=== PATIENT | male | born 1940 | race Caucasian/White ===

== ENCOUNTER 2022-12-28 10:34 | Outpatient (OUT) | payer MEDICARE, OTHER, SELFPAY ==
[2022-12-28 14:59] LABS: Estimated Average Glucose 126 mg/dL
== END 2022-12-28 10:35 | disposition home or self-care (01) ==
LOC: LAB 10:34
PROVIDERS: PCP Internal Medicine; Visit Provider Internal Medicine
DX: E11.9 Type 2 diabetes mellitus without complications (principal)
CPT/HCPCS: 36415; 83036

== ENCOUNTER 2023-01-25 14:44 | Outpatient (OUT) | payer MEDICARE, OTHER, SELFPAY ==
[2023-01-25 15:08] LABS: Basophils Percent Auto 0.3 % (0.2-2.0); Eosinophils Percent Auto 0.2 % (0.9-7.0); Hematocrit 42.7 % (42.0-54.0); Hemoglobin 13.8 g/dL (14.0-18.0); Immature Granulocytes Abs Auto 0.03 10^3/uL (0.00-0.03); Immature Granulocytes Pct Auto 0.3 % (0.0-0.5); Lymphocytes Absolute Auto 1.6 10^3/uL (1.2-3.8); Lymphocytes Percent Auto 17.9 % (20.5-60.0); Mean Corpuscular HGB Conc 32.3 g/dL (29.9-35.2); Mean Corpuscular Hemoglobin 29.9 pg (25.9-34.0); Mean Corpuscular Volume 92.4 fL (80.0-94.0); Mean Platelet Volume 10.7 fL (9.5-13.5); Monocytes Absolute Auto 0.7 10^3/uL (0.3-0.8); Monocytes Percent Auto 7.2 % (1.7-12.0); Neutrophils Absolute Auto 6.8 10^3/uL (1.4-6.5); Neutrophils Percent Auto 74.1 % (43.0-75.0); Platelet Count 226 10^3/uL (150-450); Red Blood Count 4.62 10^6/uL (4.70-6.10); Red Cell Distribution Width 13.7 % (11.0-15.0); White Blood Count 9.2 10^3/uL (4.0-11.0)
[2023-01-25 15:52] LABS: Anion Gap 11.8; BUN Creatinine Ratio 21.2; Calcium 9.1 mg/dL (8.5-10.1); Carbon Dioxide 28.3 mmol/L (21.0-32.0); Chloride 106 mmol/L (98-107); Estimated GFR (African America >60 (>=60); Estimated GFR (Non-African Ame >60 (>=60); Glucose 93 mg/dL (74-106); Potassium 4.1 mmol/L (3.5-5.1); Sodium 142 mmol/L (136-145)
== END 2023-01-25 14:45 | disposition home or self-care (01) ==
LOC: LAB 14:45
PROVIDERS: PCP Internal Medicine; Visit Provider Internal Medicine
DX: K62.5 Hemorrhage of anus and rectum (principal); A08.4 Viral intestinal infection, unspecified
CPT/HCPCS: 36415; 80048; 85025

== ENCOUNTER 2023-11-18 08:46 | Outpatient (OUT) | payer MEDICARE, OTHER, SELFPAY ==
[2023-11-18 08:57] LABS: Basophils Percent Auto 0.4 % (0.2-2.0); Eosinophils Absolute Auto 0.1 10^3/uL (0.0-0.7); Hematocrit 42.9 % (42.0-54.0); Hemoglobin 13.6 g/dL (14.0-18.0); Lymphocytes Absolute Auto 1.6 10^3/uL (1.2-3.8); Lymphocytes Percent Auto 32.5 % (20.5-60.0); Mean Corpuscular HGB Conc 31.7 g/dL (29.9-35.2); Mean Corpuscular Hemoglobin 29.4 pg (25.9-34.0); Mean Corpuscular Volume 92.9 fL (80.0-94.0); Mean Platelet Volume 10.3 fL (9.5-13.5); Monocytes Absolute Auto 0.5 10^3/uL (0.3-0.8); Monocytes Percent Auto 9.2 % (1.7-12.0); Neutrophils Absolute Auto 2.8 10^3/uL (1.4-6.5); Neutrophils Percent Auto 55.9 % (43.0-75.0); Platelet Count 212 10^3/uL (150-450); Red Blood Count 4.62 10^6/uL (4.70-6.10); Red Cell Distribution Width 13.2 % (11.0-15.0)
[2023-11-18 09:16] LABS: Estimated Average Glucose 137 mg/dL; Glycohemoglobin A1C 6.4 % (4.5-6.2)
[2023-11-18 09:18] LABS: Alanine Aminotransferase 23 U/L (16-63); Albumin Globulin Ratio 0.9; Albumin Level 3.6 g/dL (3.4-5.0); Alkaline Phosphatase 68 U/L (46-116); Anion Gap 10.7; Aspartate Amino Transferase 12 U/L (15-37); BUN Creatinine Ratio 17.7; Bilirubin Total 1.7 mg/dL (0.2-1.0); Calcium 8.9 mg/dL (8.5-10.1); Carbon Dioxide 30.3 mmol/L (21.0-32.0); Chloride 107 mmol/L (98-107); Chol HDL Ratio 2.7; Cholesterol 162 mg/dL (<=200); Estimated GFR (African America >60 (>=60); Estimated GFR (Non-African Ame >60 (>=60); Globulin 3.8 g/dL; Glucose 129 mg/dL (74-106); HDL Cholesterol 60 mg/dL (40-60); LDL Cholesterol Calculated 87.6 mg/dL; Sodium 144 mmol/L (136-145); Total Protein 7.4 g/dL (6.4-8.2); Triglycerides 72 mg/dL (<=150); VLDL CHOLESTEROL 14.4 mg/dL
[2023-11-18 12:31] LABS: Microalbumin Urine Random <1.3 mg/dL (<=30.0)
== END 2023-11-18 08:47 | disposition home or self-care (01) ==
LOC: LAB 08:46
PROVIDERS: PCP Internal Medicine; Visit Provider Internal Medicine
DX: E11.65 Type 2 diabetes mellitus with hyperglycemia (principal); E78.00 Pure hypercholesterolemia, unspecified; I10 Essential (primary) hypertension; K21.00 Gastro-esophageal reflux disease with esophagitis, without bleeding
CPT/HCPCS: 36415; 80053; 80061; 82043; 83036; 85025

== ENCOUNTER 2024-05-28 10:54 | Outpatient (OUT) | payer MEDICARE, OTHER, SELFPAY ==
--- OUTSIDE RECORDS SUMMARY | 2024-05-28 11:05 | XMS_ITS | CCD ---
Author Organization [facility] Care Team Providers Care Licensed Surveyor Name Role Phone ROBBIE NIELSEN Primary Care Physician [phone] GIA, DR IBARRA Admitting Unavailable GIA, DR IBARRA Attending Unavailable GIA, DR IBARRA Primary Care Unavailable GIA, DR IBARRA Consulting Unavailable Robbie Nielsen Unavailable SYEDA FITZGERALD Attending Unavailable PETITTI, SYEDA Sterling Attending Unavailable WILBUR CHENEY Attending Unavailable PETITTI, SYEDA Sterling Attending Unavailable PETITTI, SYEDA Sterling Attending Unavailable PETITTI, SYEDA Sterling Attending Unavailable ERIC GALAN Attending Unavailable PETITTI, SYEDA Sterling Attending Unavailable PETITTI, SYEDA Sterling Attending Unavailable PETITTI, SYEDA Sterling Attending Unavailable Medications Current Medications Medication Drug Class(es) Dates Sig (Normalized) Sig (Original) acetaminophen 325 mg / oxyCODONE hydrochloride 5 mg oral tablet (8 sources) Opioid Agonist Start: 11-17-2023 take 1 tablet by mouth every eight hours Oxycodone-Acetami nophen Active 1 TAB PO Every 8 hours November 17, 2023 12:00am Start: 12-19-2022 take 1 tablet by sera th every eight hours as needed for pain oxyCODONE-Acetaminophen 5-325 MG 1 table t as needed Orally every 8 hours as needed for pain for 7 days Dec, Active Start: 12-19-2022 amLODIPine 5 mg / benazepril hydrochloride 20 mg oral capsule (8 sources) Dihydropyridine Calcium Channel Emmanuel, Angiotensin Converting Enzyme Inhibitor Start: 11-17-2023 take 1 capsule by mouth once daily Amlodipine-Benazepril Active 1 CAP PO Daily November 17, 2023 12:00am take 5-20 mg by mouth once daily amLODIPine Besy-Benazepril HCl 5-20 MG TAKE 1 CAPSULE BY MOUTH EVERY DAY Orally qd for 90 days Active amLODIPine Besy- Benazepril HCl 5-20 MG as directed Orally Active betamethasone 0.5 mg/ml / clotrimazole 10 mg/ml topical cream (8 sources) Azole Antifungal, Corticosteroid Start: 11-17-2023 Clotrimazole-Betamethasone Active 1 APPLIC TOPICAL Twice daily November 17, 2023 12:00am Clotrimazole-Bet amethasone 1-0.05 % 1 application Externally Twice a day Active omeprazole 20 mg delayed release oral capsule (8 sources) Proton Pump Inhibitor Start: 11-17-2023 take 20 mg by mouth once daily Omeprazole Active 20 MG PO Daily November 17, 2023 12:00am Omeprazole 20 MG TAKE 1 CAPSULE BY MOUTH DAILY ON EMPTY STOMACH FOLLOWED IN 30 MINUTES BY BREAKFAST Orally Once a day for 90 days Active pravastatin sodium 40 mg oral tablet (9 sources) HMG-CoA Reductase Inhibitor Start: 11-03-2023 take 1 tablet by mouth once daily in the evening Pravastatin Active 0 .ROUTE .COMPLEX November 03, 2023 1:04pm TAKE 1 TABLET BY MOUTH EVERY DAY IN THE EVENING Start: 11-03-2023 End: 11-03-2023 take 40 mg by mouth once daily Pravastatin Discontinue d 40 MG PO Daily November 03, 2023 12:00am November 03, 2023 1:05pm take 1 tablet by sera once daily in the evening Pravastatin Sodium 40 MG TAKE 1 TABLET BY MOUTH EVERY DAY IN THE EVENING for 90 Active sildenafil 100 mg oral tablet (8 sources) Phosphodiesterase 5 Inhibitor Start: 11-17-2023 take 100 mg by mouth once daily Sildenafil Active 100 MG PO Daily November 17, 2023 12:00am take 1 tablet by sera th every twenty-four hours Sildenafil Citrate 100 MG 1 tablet as needed Orally Once a day Active temazepam 15 mg oral capsule (9 sources) Benzodiazepine Start: 11-07-2023 End: 11-07-2023 take 15 mg by mouth once daily at bedtime Temazepam Active 15 MG PO Daily at bedtime November 07, 2023 2:24pm Start: 05-09-2023 Temazepam 15 M G TAKE 1 CAPSULE BY MOUTH EVERY DAY AT BEDTIME NEEDED FOR INSOMNIA Orally Once a day for 30 days Apr, Active Start: 10-26-2022 take 1 capsule by mo [facility] once daily at bedtime as needed Temazepam 15 MG TAKE 1 CAPSULE BY MOUTH EVERY DAY AT BEDTIME NEEDED FOR INSOMNIA for 30 October, Active Problems Active Problems Problem Classification Problem Date Documented Date Episodic/Chronic Diabetes mellitus with complications (2 sources) Hyperglycemia due to type 2 diabetes mellitus; Translations: [Type 2 diabetes mellitus with hyperglycemia] 11-16-2023 Chronic Diabetes mellitus without complication (8 sources) Type 2 diabetes mellitus without complication; Translations: [Type 2 diabetes mellitus without complications] Chronic Diabetes mellitus without complication (11 sources) Impaired fasting glucose; Translations: [Impaired fasting glycemia] Onset: 06-07-2022 Episodic Disorders of lipid metabolism (10 sources) Familial hypercholesterolemia ; Translations: [Pure hypercholesterolemia ] Onset: 06-10-2022 11-16-2023 Chronic Esophageal disorders (4 sources) Gastro-esophageal reflux disease with esophagitis; Translations: [Gastroesophageal reflux disease with esophagitis without hemorrhage] 11-16-2023 Chronic Essential hypertension (11 sources) Essential (primary) hypertension; Translations: [Essential hypertension] Onset: 06-10-2022 Chronic Hyperplasia of prostate (7 sources) Lower urinary tract symptoms due to benign prostatic hypertrophy; Translations: [Benign prostatic hyperplasia with lower urinary tract symptoms] Chronic Miscellaneous mental health disorders (9 sources) Primary insomnia; Translations: [Primary insomnia] 11-07-2023 Chronic Other aftercare (1 source) Other long term acute care registered nurse (current) drug therapy; Translations: [OTH DETENTION CURRENT DRUG THERAPY] Onset: 06-10-2022 Episodic Other male genital disorders (7 sources) Impotence of organic origin; 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] Chronic Other nutritional; endocrine; and metabolic disorders (7 sources) Overweight; Translations: [Overweight] Episodic Other upper respiratory disease (7 sources) Vasomotor rhinitis; Translations: [Vasomotor rhinitis] Chronic Other upper respiratory disease (1 source) Vasomotor rhinitis Chronic Poisoning by nonmedicinal substances (7 sources) Toxic effect of venom of bees, accidental (unintentional), initial encounter; Translations: [Bee sting reaction] Episodic Skin and subcutaneous tissue infections (7 sources) Cutaneous abscess of left lower limb; Translations: [Abscess of left leg] Episodic Spondylosis; intervertebral disc disorders; other back problems (8 sources) Lumbar spondylosis; Translations: [Spondylosis without myelopathy or radiculopathy, lumbar region] Chronic Spondylosis; intervertebral disc disorders; other back problems (8 sources) Acute back pain with sciatica; Translations: [Lumbago with sciatica, right side] Episodic Past or Other Problems Problem Classification Problem Date Documented Da te Episodic/Chronic Esophageal disorders (5 sources) Esophageal disorders; Translations: [Gastroesophageal reflux disease with esophagitis without hemorrhage] Results Test Name Value Interpretation Reference Range Facility CBC AUTO DIFFon 06-07-2022 BASO # 0.0 103/ul Normal 0.0-0.1 [facility] Comment on above: Performed By: #### C BC #### [facility] [address] [address] [address] Wu Tony Basophils/100 WBC (Bld) 0.6 % Normal 0.2-2.0 [facility] Comment on above: Performed By: #### C BC #### [facility] [address] [address] [address] Wu Tony EO # 0.0 103/ul Normal 0.0-0.7 [facility] Comment on above: Performed By: #### C BC #### [facility] [address] [address] [address] Wu Tony Eosinophils/100 WBC (Bld) 0.6 % Critically low 0.9-7.0 [facility] Comment on above: Performed By: #### C BC #### [facility] [address] [address] [address] Wu Tony Erythrocyte distribution width (RBC) [Ratio] 13.3 % Normal 11.0-15.0 [facility] Comment on above: Performed By: #### C BC #### [facility] [address] [address] [address] Wu Tony Hematocrit (Bld) [Volume fraction] 44.6 % Normal 42.0-54.0 [facility] Comment on above: Performed By: #### C BC #### [facility] [address] [address] [address] Wu Tony Hemoglobin (Bld) [Mass/Vol] 14.4 g/dL Normal 14.0-18.0 [facility] Comment on above: Performed By: #### C BC #### [facility] [address] [place] [address] Dr. Wu Tony IG # 0.01 10e3/ul Normal 0.00-0.03 [facility] Comment on above: Performed By: #### C BC #### [facility] [address] [place] [address] Dr. Wu Tony IG % 0.2 % Normal 0.0-0.5 [facility] Comment on above: Performed By: #### C BC #### [facility] [address] [place] [address] Dr. Wu Tony LYMPH # 1.6 103/ul Normal 1.2-3.8 [facility] Comment on above: Performed By: #### C BC #### [facility] [address] [place] [address] Dr. Wu Tony Lymphocytes/100 WBC (Bld) 25.7 % Normal 20.5-60.0 [facility] Comment on above: Performed By: #### C BC #### [facility] [address] [place] [address] Dr. Wu Tony MANUAL DIFF REQ NO Normal [facility] Comment on above: Performed By: #### C BC #### [facility] [address] [place] [address] Dr. Wu Tony MCH (RBC) [Entitic mass] 30.6 pg Normal 25.9-34.0 [facility] Comment on above: Performed By: #### C BC #### [facility] [address] [place] [address] Dr. Wu Tony MCHC (RBC) [Mass/Vol] 32.3 g/dL Normal 29.9-35.2 [facility] Comment on above: Performed By: #### C BC #### [facility] [address] [place] [address] Dr. Wu Tony MCV (RBC) [Entitic vol] 94.9 fL Critically high 80.0-94.0 [facility] Comment on above: Performed By: #### C BC #### [facility] [address] [place] [address] Dr. Wu Tony MONO # 0.5 103/ul Normal 0.3-0.8 [facility] Comment on above: Performed By: #### C BC #### [facility] [address] [place] [address] Dr. Wu Tony Monocytes/100 WBC (Bld) 7.1 % Normal 1.7-12.0 [facility] Comment on above: Performed By: #### C BC #### [facility] [address] [place] [address] Dr. Wu Tony NEUT # 4.2 103/ul Normal 1.4-6.5 [facility] Comment on above: Performed By: #### C BC #### [facility] [address] [place] [address] Dr. Wu Tony Neutrophils/100 WBC (Bld) 65.8 % Normal 43.0-75.0 [facility] Comment on above: Performed By: #### C BC #### [facility] [address] [place] [address] Dr. Wu Tony Platelet mean volume (Bld) [Entitic vol] 10.2 fL Normal 9.5-13.5 [facility] Comment on above: Performed By: #### C BC #### [facility] [address] [place] [address] Dr. Wu Tony PLT 226 103/ul Normal 150-450 [facility] Comment on above: Performed By: #### C BC #### [facility] [address] [place] [address] Dr. Wu Tony RBC 4.70 106/ul Normal 4.70-6.10 [facility] Comment on above: Performed By: #### C BC #### [facility] [address] [place] [address] Dr. Wu Tony WBC 6.4 103/ul Normal 4.0-11.0 [facility] Comment on above: Performed By: #### C BC #### [facility] [address] [place] [address] Dr. Wu Tony GLYCOHEMOGLOBIN A1Con 2021 ADA RECOMMENDATION SEE BELOW Normal [facility] Comment on above: Result Comment: ADA RECOMMENDED LIMIT 4.0 - 6.0 ADA THERAPEUTIC TARGET < 7.0 ACTION SUGGESTED > 7.0 Performed By: #### A 1C #### [facility] [address] [address] [address] Wu Tony Glucose [Mass/Vol] 131 mg/dL Normal [facility] Comment on above: Performed By: #### A 1C #### [facility] [address] [address] [address] Wu Tony HbA1c (Bld) [Mass fraction] 6.2 % Normal 4.5-6.2 [facility] Comment on above: Performed By: #### A 1C #### [facility] [address] [place] [address] Dr. Wu Tony LIPID PROFILEon 06-07-2022 CHOL-HDL RATIO NORM SEE BELOW Normal [facility] Comment on above: Result Comment: 3.3 - 4.4 LOW RISK 4.4 - 7.1 AVERAGE RISK 7.1 - 11.0 MODERATE RISK >11.0 HIGH RISK Performed By: #### L IPID, ALT, BMP #### [facility] [address] [place] [address] Dr. Wu Tony Cholesterol [Mass/Vol] 157 mg/dL Normal <=200 [facility] Comment on above: Performed By: #### L IPID, ALT, BMP #### [facility] [address] [address] [address] Wu Tony Cholesterol in HDL [Mass/Vol] 65 mg/dL Critically high 40-60 [facility] Comment on above: Performed By: #### L IPID, ALT, BMP #### [facility] [address] [place] [address] Dr. Wu Tony Cholesterol in LDL [Mass/Vol] 73.8 mg/dL Normal [facility] Comment on above: Performed By: #### L IPID, ALT, BMP #### [facility] [address] [place] [address] Dr. Wu Tony Cholesterol.total/Cho lesterol in HDL [Mass ratio] 2.4 {ratio} Normal [facility] Comment on above: Performed By: #### L IPID, ALT, BMP #### [facility] [address] [address] [address] Wu Tony HDL NORMAL > or = 60 mg/dl - LOW CARDIOVASCULAR RISK <40 mg/dl - HIGH CARDIOVASCULAR RISK Normal [facility] Comment on above: Performed By: #### L IPID, ALT, BMP #### [facility] [address] [place] [address] Dr. Wu Tony LDL CALC NORMAL SEE BELOW Normal [facility] Comment on above: Result Comment: <100 mg/dl OPTIMAL 100 - 129 mg/dl NEAR OR ABOVE OPTIMAL 130 - 159 mg/dl BORDERLINE HIGH 160 - 189 mg/dl HIGH >190 mg/dl VERY HIGH Performed By: #### L IPID, ALT, BMP #### [facility] [address] [place] [address] Dr. Wu Tony Triglyceride [Mass/Vol] 91 mg/dL Normal <=150 [facility] Comment on above: Performed By: #### L IPID, ALT, BMP #### [facility] [address] [place] [address] Dr. Wu Tony VLDL CALC 18.2 mg/dL Normal [facility] Comment on above: Performed By: #### L IPID, ALT, BMP #### [facility] [address] [place] [address] Dr. Wu Tony PROF CHEM 8 (BAS METB)on Anion gap [Moles/Vol] 7.6 mmol/L Normal [facility] Comment on above: Performed By: #### L IPID, ALT, BMP #### [facility] [address] [place] [address] Dr. Wu Tony Calcium [Mass/Vol] 9.2 mg/dL Normal 8.5-10.1 [facility] Comment on above: Performed By: #### L IPID, ALT, BMP #### [facility] [address] [place] [address] Dr. Wu Tony Chloride [Moles/Vol] 105 mmol/L Normal 98-107 [facility] Comment on above: Performed By: #### L IPID, ALT, BMP #### [facility] [address] [address] [address] Wu Tony CO2 [Moles/Vol] 32.5 mmol/L Critically high 21.0-32.0 [facility] Comment on above: Performed By: #### L IPID, ALT, BMP #### [facility] [address] [address] [address] Wu Tony Creatinine [Mass/Vol] 0.82 mg/dL Normal 0.70-1.30 [facility] Comment on above: Performed By: #### L IPID, ALT, BMP #### [facility] [address] [place] [address] Dr. Wu Tony EGFR-AF ESTONIAN >60 Normal >=60 [facility] Comment on above: Performed By: #### L IPID, ALT, BMP #### [facility] [address] [place] [address] Dr. Wu Tony EGFR-NON AF ESTONIAN >60 Normal >=60 [facility] Comment on above: Performed By: #### L IPID, ALT, BMP #### [facility] [address] [place] [address] Dr. Wu Tony Glucose [Mass/Vol] 132 mg/dL Critically high 74-106 [facility] Comment on above: Performed By: #### L IPID, ALT, BMP #### [facility] [address] [place] [address] Dr. Wu Tony Potassium [Moles/Vol] 4.1 mmol/L Normal 3.5-5.1 [facility] Comment on above: Performed By: #### L IPID, ALT, BMP #### [facility] [address] [place] [address] Dr. Wu Tony Sodium [Moles/Vol] 141 mmol/L Normal 136-145 [facility] Comment on above: Performed By: #### L IPID, ALT, BMP #### [facility] [address] [place], [place] [address] Dr. Wu Tony Urea nitrogen [Mass/Vol] 20.0 mg/dL Critically high 7.0-18.0 [facility] Comment on above: Performed By: #### L IPID, ALT, BMP #### [facility] [address] [place], [place] [address] Dr. Wu Tony Urea nitrogen/Creatinine [Mass ratio] 24.4 mg/mg Normal [facility] Comment on above: Performed By: #### L IPID, ALT, BMP #### [facility] [address] [place], [place] [address] Dr. Wu Tony [facility] 06-07-2022 ALT [Catalytic activity/Vol] 19 U/L Normal 16-63 [facility] Comment on above: Performed By: #### L IPID, ALT, BMP #### [facility] [address] [place], [place] [address] Dr. Wu Tony Coding Summary.on 11-22-2021 Coding Summary. CD:[id number] Gh0bWw+PGhlYWQ+PE1FV FFiF77jpVOfrF2GQ6pFS V6KRCAJWKABSP4FXH4xw DF2CWttS4BgalNy LqbpfCDqFX08KCx1DYV0 bRucZAophE9opKDwR4j0 PgBvLE18gX20IQfaJDBu UbL5IrWugdpfvCMi V2pkSuQfvJJnBgl+PHRh YmxlIHdpZHRoPScxMDAl WfOncYcbNZ2iAc7wXQLm LWNvbGxhcHNlOiBj f3gfIPWoJJkaGQ2kmMft U4WwiYG2DUOqa4i2Pq12 dHI+FDSyXRJ9tXepYXqb p014UdHcb3zuRHD8 hOBkUPjyLBH2A86pn1Y3 TSRtNJJrMAF5aKO3rJ4i nIcsxtqfV9RdrPLyYxP8 NXA6sVItwC8juUvs cwwwhC4wBbl+N79YYI5V KDCOLH0GGug5E7OuUyih dHI+RT34UPHnPW28hIGi sPYdj4kfiSz6LxXe OPXcRRN3xMkbIHlzc1Vr RPUqN58toZAgj2L3PABu nLfcaYSfIlLsgLC0tL3b AMrdpnqle5byefkf Ewdid9acfk16cO15D92i IGxeDLIoACD6NLCrSVUr gFjbra6dtV9rRz5+IDxj v3qsu2snjXc6ViYq RMVeahKswIsxYYL3d8Vl Wa42A3XexUwul3MeTyl0 rd46dJFpf9Y8nIP3ZXzh UCRdoV4xYJjdLdK9 UEMaHxMkmB57iPBpVJbw Bn6wyRzzlIpkUC8jVSDw uyaeKFAklL3xRKDsrNJw sIpcXP2uMBTmbpud h982RdSwOIR8SCQyzTRu B3PpgU1aSaLbUHFrGTIj Z0BdkNEkGSvoU886KCeo GbX3XISkrvGsJ8Xl XNOrqTrfWzY6a7F3Fa3Z t5NyafmwBDH7NSkeYFB9 QhPgSfPuBrT0M5OeVsq7 YIDhaAvjXU9aP4Va NJThivhjacthaUN7BNPq ICNvbW65eFJhQCbpYb2x r6J0d610UISfMGWrkT11 Eg2jdZkwAOPhlIKC xG2vgxnkj2tjuswqRzYu HHLsSQy0YXt8LTOdvUrm RxZqOFL3JyD6VOQ6hGLb bU9vgMytbljajE4c Oyc+P43joL4rFGF1XJT2 xxomQTQwinTdJC16LE15 X0FyCqnmmTMfkAZ+PGRp vqVmeFtyIJ6sJgIc k2uyr7AxCRuxO6LtJSHg SSqaNjx2VSTdCGV8fTI5 tW8fLPXlKLfqf0F8hMR9 S1SleyWpdd8ek6ml HFAvKHwtN93ihREew0P1 PIUrnPO0XMZrnCxuHdHl vR49Uqz+BBMziZnst8Ia Lpjbv2biv0aefTt4 IjMwJSIgdmFsaWduPSJ0 t2QtIo22O16rDKizUUTx SOWyXVKaIJNskQmzus4u fQ6dPh9+PGNvbCB3 sWM0oB1vRSCnAgW7YQso R729KwUrqVKlRfalj3qu j9pooBa2OuAcZEFddwIu vGroVFM8h1BsKx37 C10qIKqtJABmSCOpDCTa DMLbaSxiya5psK0vYl4+ TQ9ll7vccu73oG16xFT+ LGDmARS0kTjkOHno GBVmdF4aHGwbJvL1CXUz AhThhM69cCGzEOazGn2u rKmetPzwMJ6uTCPmbmmz k547LgGbo0vtVBMf rDHgNUmfOSJ6E07fm1N3 PRGcJWWbTDJ2gHE9kM5c bGlnbjogbGVmdDsgdmVy gWdlICimLOjrZ406 IHRvcDsnPlBhdGllbnQg LoXfVMv6M0GsRrh6ZPLc sJxdYM8ukJClZHieIl3j zPjzwRllBK1wKZSx umuaf879LpUpa2srPFYv rDGxJOcmFHW7M03bo6Z0 SBLdVUIgPBO6wPG4mS6p bGlnbjogbGVmdDsg xgUtnCrjCKncGDbuR034 IHRvcDsnPkJpcnRoIERh qXC4PS47WB31cUIhc9X8 iCI5W1RsNRKwsdfr psziwKJ2OTPiIZLszP17 Qu9fqHifEq8bYSBpHKB7 LTLuhUJvB5BrjV1uDlSr OKJtRJXxE2KezOOo RXlrI111GJxnBdI4SWWq ipLyE6KtKIAdyGkpEmD9 k1S3Za8WA5N0RP18JV39 gLPuc7Y3oTM8E6Cd LVEqwctvwaihbMI8QMQx QWVlzZ02Bl4ldQghHu8c QUQhVLI2XUCqlGTyD3Ss pX2oObKzPMJmQCQh Z7PmeUTbSRbkI594VVey CyV3JWFbqdXcD0MoNOAr qRyfYpD4f4B4Bs7QCIy9 YS81FX16pNVcz0M1 eXQ3S1AcHVPwgkmscfdt cFY0JQCrNGQmvZ18Om0c gPtwFz8lRHSaRIR3CHRq xQCzO0RdaE8nRfOz ARKdXQTcO1HytKCfCSod L451HZwzXxT7ICAbknCe L2UyMGPrbEoxVyU9v8P5 Fe4NPCYdQT10OCO5 oYE8KI44JK57L0MfMsne dGFibGU+PHRhYmxlIHdp ZHRoPScxMDAlJyBzdHls PK7fSo4wZOLjEJIb xNdnfDZbJwAjf4dvEQKo KCuqJY8xsPobN5HhdRK3 XILyw3i1Zt65S89pN6Rk dXA+QTJvgOP3tAG5 rX8mIeZqKeZ9LLdnQ296 FtCcuLDaCckiw3ksw1ra eNk0JnF6IHLuvpBreOqe CKW1l0ZiDv77S07r IHdpZHRoPSIxNSUiIHZh zOixam8hlS1wUf1+PGNv kFB8eAG9nC1iYxDcYcW2 ZYgiU778QeOluPAh Gufgt9ors1muzHw2EbZs AABuhbGiuLjbYFU2v6Gj Sd48N1RmjUdyu5QbVnd5 sr79uGUis3X9vYI2 I1GvRCTdymhmsHKitCxy MR9mQSTmhdldZCVlcF1v YCKaM8y5GtRfFaD6BKme V9DecmK0BMSpuEVu FJidLHJ0S90dv5M8IEQh ZNPcPDS4eYK5eM5dqKbn bjogbGVmdDsgdmVydGlj FXcaNBifC267PDQz fDjgXZCetR2jNYOfmPEx uYcoDI0zVZBerhvzOl1I EzLTPbmdU0YWSEwhwBS+ TANkRCH7yUnhEGcm QZAqyW6bWABkP3d7IsAr LgK1PZucM0SeHJNqedmz Do03yG4rPiFxDuA6PFbf N9ViptF5JHEugZJr QCchKJA3W27wt4S6PSUs CGHvBLS9yEI1zD6nbHfw bjogbGVmdDsgdmVydGlj OUlpPVmfZ182YQLt uIljJiPwKdX8RmB9Nfb5 O6QfGkh7YAJmmNguMB9j pZRpRDdeCk9mfBhzvFan OZ5sWOItjzojEDRl fR7kHODvqMGirFxzJY8g EYVjumqjy788YrWyKCN1 XNEvhJHmG8OgfR5iHxBm DQGoIFKbL9BwoAMi LQztL937MUedVvG8CPCd bgHxK6JjTUCxcUmqQhK1 r2L6Ul70AvYDSRXqfgqf dGQ+KHXtQDF2tBno WOzqHXYaxF2oPOSzV0i6 WhUhXlA0WUjfU1IxSREz kwhuDg65rA3aIlTwSjR7 RHdwW5DegsB5PYSc cVHtZPrfUNC6V11en1L7 AONaYNCuSBP9pYC8cU5z bGlnbjogbGVmdDsgdmVy bVpvSPkjSHnwB871 ZQKimNzaNo9zlMW7O3Ce Pqy1FCYkoHjgAB3iiCMn KDlgYt1dfFjxeKyhEN4a YBBralibUMGbvJ6v ONTunHWlsMgoRN7cMFQv ppskv082WaUzQAX6EGHi nGLnB6KprB5dKaSiCHPw DXXcZ6AuwEZoJIvy B391ZAaaVuG9SNUxmyPr P9OnKXGqrZwzRvX2a8Z6 Yy1LmCFkJMRaTM49TS81 RT66B4ZpQbipqYHa bGU+PHRhYmxlIHdpZHRo HEuaPYSpCbUucTzbMV0n Hw3yMGRmRSMbqVytmEQz BxWuo3dgMVOkHLsl RV3lxQhuT0OxaSR3YRHx t2v8Dk77B81kJ1DsrZA+ ZDYatDU5eJI3aQ3uToUh AbI7WJwzH135ZxKq qFLwYbcwe6uvz4utaTf1 IjMwJSIgdmFsaWduPSJ0 x7ZdAr10S50eBNjdQPOb PSIyMCUiIHZhbGln hh0gyC7pCf5+PGNvbCB3 pUA6pF0bLvToOfM7XWjf R190WkXuiGEeBbsvG93s N5NrdJO+PHRyPjx0 IBVuuXgbSL0ygVUtZByy Za7pVLQ9FrAtBmPbKIpf K2VjPDMqganzdndryGS7 NZAmMPDgqM17Lg1r ePtgTl8uUFZqXLK4GBOc uFWxM0GmmY4cRqYtWBDc KECoS5GcpIRkSMvwK123 MDgzCsT8AGTmymBc E6SdCCIcuMrmFoL0w0L2 Uo2YoRsuoKTrRT8jIkGz QQs1R5GxDna8EORtmAtg VJ5gvKCyVTmyHz4t eUujcEnqVX3oVFSydqnc c566EdCeb4dhTLIjoDWm XDmhNLG7O53nr4M5QODp YIJzPED1nGP6sU7y bGlnbjogbGVmdDsgdmVy tUreQHooAIzlV904TCEf kWduKvEGSws9A5QlXtu8 QUJifTmnCI2bpMRt LNblTb0kyTgwjRbhVW6z EURapuazu907SzCzl7pb KTZnwREnEKjlIFZ2J14y b4Z0JLOcYEAbYRI9 vZX4kD3hwUybzflcpZTk dDsgdmVydGljYWwtYWxp U037DAGrkDdeWe0ZRvt5 Z7LgHcz5HDHguQie MO6dwDUkWRveIp9jhHjq yDanRL0aQHAkoqaci799 LeOoe2vrWZZpiAIrEJtd JTT2C17rp9F1XJKo JBDdQOS4mXX8vR3xcGvs bjogbGVmdDsgdmVydGlj GPqyHFocF156AMWiuWyl PlBheWVyOjwvdGQ+ ZG03ix84H2KiGrkiNmz1 JRPvKWB3tRU0aE0hOEOl GOmve9G0mTK9U8VqufZo hf7cj2oqPWGiOTbq Y29s (more content not included)... [facility] Consent for COVID Vaccineon 11-03-2021 SARS-CoV-2 (COVID-19) RNA KYLEIGH+probe Ql (Unsp spec) [id number]. [id number] 8#1.00CD:127 [facility] Consent for COVID Vaccineon 04-24-2021 SARS-CoV-2 (COVID-19) RNA KYLEIGH+probe Ql (Unsp spec) [id number] 2#1.00CD:127 [facility] Consent for Treatmenton 04-12 Consent for Treatment [id number] 11 [id number] 8#1.00CD:127 [facility] Coding Summary.on 04-02-2021 Coding Summary. CD:[id number] Gh0bWw+PGhlYWQ+PE1FV ARwS77etICruL4UH3eBX S7TEQSMXSGVMV4TLK6zs XL3JCodQ0CakvMd AeuyoDDjTP85JNe9WOY0 gRbkTEapfI6qcJXlP0h9 AfQyBU62dU18EMocPBHh WnS9YiNwwfrujZCm G8ugXpHjmYGiYzy+PHRh YmxlIHdpZHRoPScxMDAl VhNtvOvfAT6lVv3bKUHs LWNvbGxhcHNlOiBj j0faKNCsXRisTS1xdVtd I1XhkVE1ROOxn4j9Xo67 dHI+ZMWiORX7xErxOTpi w874NqHym5pwIDL5 aFJwLRreTGZ4U55yi8T5 UQZvCKQbGVN4nXG1sB0n uXfghmixX8SyfGSaPyW0 RXO1xVSnwG0tzVad dmzweB9tBhf+Z94BGL3E EBQNEB8MDzy3O3WnOpeg dHI+ZB56NWEvVU59zNBm gRGbn4uszSo6HpOv CFGfKJZ3yTghZTzzz8Mp CYTaU39gnZJxn3A9OTPq hJfutACqHrJdcJC0hY8h RTqsndqlb0bvfufz Crbml7aemu95hW17V93l YZmsLWTkZRG3JMXgKZDq fToohc6xeE2lWg0+IDxj z6myx1oeiVn2EyJt IHSwleRfmQvvWJZ5e7Km Qq84I1LsuIpkb2XqMpo1 gu17hXRhr2Z3iCX7AXsl KZKnhO7tYPtzClH1 LAXpArVdqL10oKPmUGwk Mr9tuPfwjAvdOQ7gTHPc davuELEknJ7jFQGrlCKz tFkwXO2zMCIyzgeh z586BuHmGJP1SQEurUVy E4WjzF5rLoPjSGUeMNEx O1ZqlGSdQJmaI690ZRcu PhS7WGZqbzLaN4Qo PJCcbXcnPuH6r8C5Qg4L l4WgokguQZH3EIpnKKQz MxOkQtMuJuV4J8RxMqh0 RMSdxPsmEY7pG6Jc CRPgbaemieudbGX6FQOp NJDapD19wKZoLVnrEd7j x8D9c628XJOjUWVsmK80 Gp6abCnnJDEunKAH oE9yramvm4isfgxzQdTc RRNoLMn4XBe0HTUbpEqc ZbIfUYE6XcE2WVQ6jDVq yG6knQggjoxfsP3z Oyc+V94qzG9dLYN6VXE4 bxwmMJIkieTjWJ70TP68 A9RyCwbdlCSsaKV+PGRp giTkcRjwCC7fCzXn m2xsw7TmQGnzT8MuNRUq HLjuBub5ZWUoVMV1qGT6 kC7kZRJcDFuma2A0kDL3 N3NxjvWzdy1nx4un QEToTUuuE74vvQDsr5H1 AKLwaOI0IDHiiFufZtKv dL74Txa+MWBavDcib9Iu Gjwql1gld7thlNs2 IjMwJSIgdmFsaWduPSJ0 e2XcKg83O56jMHdjHYKh DQKpARYbQWMxeKwhyd6t jF4xNe7+PGNvbCB3 tYC4oK0iCDSeBpA6LNwh G156BkIrhUCyYgsrt9jh u7yaiOh7XqVrEIHoepSk hGeoNDB9c3YgTo90 S20rGGqnFCYoHRKoAZYo UFNgzWxoby4ibB8wEw8+ OQ0st8pjra96fD80jXK+ RQXbUZG1hJljRKpt XWPurV5hPQvvFhW4OVGb UeNxdO57rMPjQVphEq3z uGjshXkpAQ7oLJTiodqp z247WsRaj0zsJDYn pHPsICvzFNF6I15ir4Z0 WXPuNYRhMTF2zRG3bT4o bGlnbjogbGVmdDsgdmVy mKkpMXesJOrnH484 IHRvcDsnPlBhdGllbnQg KgIiCVe6H7OxCth9ZFAv sErjTB4qjZGbCVvmSp1e qIyvaSxbFE8qMWBs xqijr190BeCbb1okTOLh aZZaFLziWDN0T35un9V1 KJPjYLTkELQ0mAA7oH3k bGlnbjogbGVmdDsg inXheVokHWoaHTfoX867 IHRvcDsnPkJpcnRoIERh hIX2NX73LT54tSJql9B3 yHU3K7XlMKVrtdaq mlxhoOS4OOJhWUUpfV81 Kb5uvEnbZb9uNBYqLQJ4 DWGnmZVhV5WelQ4fVjYs ONQbRWDcT8JhdCVs OKjlU092VXapHwQ6ESVn mbQcF0QtYBQysAqsHdL6 e4T1Vk1MU4E6EL51IB19 hEItv1C7yHB8Y3Za YKBewmzscjrvgWE1KSPo AQFgwJ04Cb2ryZakVj5r KSIbPCM8WHHxuDGeK8Wr oU4uMkCbXFGwNTLz M2DmsTMoKCtjA896OHxv YlB4ZINyfvXsL8RhILTr xRniAfT7b9B6Af5FXVk2 SN61YB89oIUnk8A1 hIJ4G4RkNLEprmnlzusj xOK5MTHkSGRbqO76Gd1g tEdaTp7gCHLtUFW1VEUo pGClS6UxjL3jGvWo HXSrGYQyQ0EugCWuKFht L641DMevSpF1ZRQwloQa P6OnEDUlaArdGdT6s8F6 Ty3AEWIyIF60PSS7 kQD8FN63QU11R5SqJlts dGFibGU+PHRhYmxlIHdp ZHRoPScxMDAlJyBzdHls BF9dEg0wGHJfSFHb mKhrhMDeIgAsy3jbVMUp OGkcIY5ndUohS9HgiZA2 AVVvv2n9Rf92S84vG3Kb dXA+ZFVtfVO0uFG9 iR4sSoMuSlX1ZUxvE638 ZgPrnBIlXdptb0mgp6ks qZb4IqI2VTJmovOttLjw COX2u6QnVn87D35j IHdpZHRoPSIxNSUiIHZh uXkkxe5ecN9rKl7+PGNv aZY5kXG7pS9kEiLlMqZ1 CXqvK258UyNvsSAk Kxzcd2oup7qcuZx5TyLu SZLwfcEmbExrMHF9g4Ws Ag00A9AobAqng0NoWav4 ty40yLNlr6V2zQA8 Y6HrJFYldntjnZTooGzk OR7iHAZmbnbsFMYlmC5g HHPtD7q2ZbVkIvY7VUnm X2GjfbP1IXPtyIPs XXxlVML7W87ej5W5RTGv SPBcGRE5fCA9wK4ojWqn bjogbGVmdDsgdmVydGlj LOqjVDnaS165IWBd xNkoQWQajV4hNUDppXEr vGloJU3kNCNnqeabRz5M XyGPRwzjL3YORRlbeQQ+ JLOtZPN7nNomVFom TJEzvJ4jAJHeH0n4PnQh QhG4KBgtB2YoNOOzmcny Qf34lM2pXzBrPhU5LFtf F6QwymU9KSUdoLYi HTmaPGB4C62pi9A5TMLz HOCfDEX1aES1sQ6sxRga bjogbGVmdDsgdmVydGlj SVndFFuuN639JXKa tMjnXlUmLcE3GiJ4Hod5 O7HwNrv5PMKkkSqmDB9i yWHjIXytLb7apZifoKia CN6tTHIawuidAIRt zM8eAVLgoCFttKhrFB5w PDGrdtsmv321VnVxKVS4 PLPouFPuI9CfiT3eGhXt FXTlERBfA2MkxNYu KDtqE267YMrnUsG3WTFs xvQpZ0TeLRGawYpfYpY4 l0P2Sg72WROUXXAbghlc dGQ+GBOeTOR0fUml IBnsPCRwdD6sJDYjH0t5 AaHpVlI9CGzeR8MfOOSk iaaoZy83oP4oYsApWkL5 XQhyQ7VmxeT8RSEr kRMyNGpnTJS3P96ko5E6 QRCzYVTeLHP8tIV6rW9f bGlnbjogbGVmdDsgdmVy kVukPCqwQDdtA926 RFUjlXmwPy5xeZN4G5Ob Tec5NMAaaRkcRD9obSAv XFmpCx0jqIjlcRnuWJ0l LBQophgdBMLbuN8m HPWqwGZyfVzzLB7iMZTm oxvfc500UpBxXSL8RPHd vNCjC4KhyI9oTlWtDGPt RHRvO6QmoDTkCOdr A322EIbkArJ8HEMmwnRu X8ZmECCjtHojCnQ2l2J5 Ya2UTWT6zxOmorg8T7Rg PjwvdHI+JO46GUWg TM01bFLztSQsm7dowIh6 GoVdZFCtQTA8bPpnWDpj a4ZlOUAjZ02zkOSui7P0 IGNvbGxhcHNlOyBl nLM6cL2qNJrbabigd3sf lrqbAhvwq0rbeh54qD95 W72aXBfoQSSvQOKvJFGw HZBoaBvdbb9cmV7m Ii8+QYOjzAH4zHD8aD3m RcTqKxT2SKzgR816CpUn yCXpCnvpa9owk9clzWh8 IjIwJSIgdmFsaWdu VNG5g5HnZm18N34tAGfw ZHRoPSIyMCUiIHZhbGln el0cpD7vXw5+ZV7ya4do iv72tM57qHB+PHRk KNL1iYxtTKloCHLydO8v FXmgFaZ5ZRRmTlNylE03 cVJnNMogAx0ftDhxjKgt LI9uDXIeavytq496 HyEmi3tnZJKtiJDhJSrg TMA7H81vk7H3RBUcKOMi JJQ2qNA1qV8qdOrvdldq bGVmdDsgdmVydGlj CFdcUQucZ631MJVnwQmv WhOvoYVsM7arhoAVVD1k OjwvdGQ+NMFpGWY6hXge SOoaVOCbqG8tHCFo B1e1BrZtHzU5XFowR3Nn egE9TMBroATuNBBjmKFU bV5usqpjw7syqyrdTbOy DSEnHXe7MMf1YXSg aTzqQzHyKDI7IjF2HNA8 ySJdpD3mcBrrghqrgI0n Oyc+RklOOjwvdGQ+PHRk SAU1rXqlZCumQOYe kI3cVLRdC5q1SqVzIfN2 TTdqK1BhyhH7MJHglHSw OHCopBTUwG1viwmgd8lt cjogIzAwMDAwMDt0 ANf1HTVcfOvnMyQmCPN7 IoY9EZB9vWYhdR7mkWvd jmuekO8uZas+TVJOOjwv dGQ+CSBeCLI9dUna FCrwHUMjgA5wSVIxT5k2 BhNrBdO4VJpkE6KfctL4 ORPbkREtIBMehDCTcK7d vtavb7wkcsnxDzKt EXEfZAm2XKh8OTXziLpd MgCyRZI0NcG0ATO2fLBj nO6lkYuixvgtvH0eYoa+ WUT1FGZ5PO40MD52 F8BkNcapeKGjzMX+PHRh YmxlIHdpZHRoPScxMDAl CiUgiYweAM9qRl8wPMVn LWNvbGxhcHNlOiBj b2xs (more content not included)... [facility] 07-30-2020 Superficial Wound Culture ORGANISM: Staphylococcus aureus (O:STAAUR) Quantity of Growth Heavy Growth Aerobic KESHAWN Charge (PC45) ----- SUSCEPTIBILITY ---- ORGANISM: O:STAAUR ANTIBIOTIC INTERPRETATION KESHAWN Amoxacillin/K Clavulanate S <4/2 Ampicillin/Sulbactam S <8/4 Azithromycin R >4 Cefazolin S <8 Ceftaroline S <0.5 Ceftriaxone S <8 Ciprofloxacin S <1 Clindamycin R <0.5 Daptomycin S <1 Erythromycin R >4 Levofloxacin S <1 Linezolid S <2 Meropenem S <4 Oxacillin S <0.25 Penicillin S <0.03 Piperacillin/Tazobac francisco S <4 Rifampin S <1 Tetracycline S <4 Trimethoprim/Sulfame thoxazole S <0.5/9.5 Vancomycin S 1 S = SUSCEPTIBLE I = INTERMEDIATE R = RESISTANT BLANK = DATA NOT AVAILABLE, OR DRUG NOT ADVISABLE OR TESTED R* = RESISTANCE DUE TO EXTENDED SPECTRUM BETA-LACTAMASES ESBL = EXTENDED SPECTRUM BETA-LACTAMASE TFG = THYMIDINE-DEPENDENT STRAIN RADHA = BETA-LACTAMASE POSITIVE IB = INDUCIBLE BETA-LACTAMASE. APPEARS IN PLACE OF 'S' WITH SPECIES KNOWN TO POSSESS INDUCIBLE BETA-LACTAMASES. POTENTIALLY THEY MAY BECOME RESISTANT TO ALL B-LACTAM DRUGS. PERFORMED BY: [place] [address] PATHOLOGIST FISHING TOOL OPERATOR SALVADOR TOLBERT M.D. [facility] Comment on above: Performed By: #### C US #### [address] Vital Signs Date Time Vital Sign Value Performing Clinician Facility 11-17-2023 14:20-0400 Body height 172.72 cm [facility] 11-17-2023 14:20-0400 Body mass index (BMI) [Ratio] 26.9 kg/m2 [facility] 11-17-2023 14:20-0400 Body weight 80.45 kg [facility] 11-17-2023 14:20-0400 Diastolic blood pressure 80 mm[Hg] [facility] 11-17-2023 14:20-0400 Heart rate 73 /min [facility] 11-17-2023 14:20-0400 Respiratory rate 12 /min [facility] 11-17-2023 14:20-0400 Systolic blood pressure 138 mm[Hg] [facility] 12-19-2022 09:45-0400 Body height 172.72 cm Robbie Ball Other [facility] Other 12-19-2022 09:45-0400 Body mass index (BMI) [Ratio] 26.91 kg/m2 Robbie Ball Other [facility] [employer] Other 12-19-2022 09:45-0400 Body weight 80.29 kg Robbie Ball Other [facility] [employer] Other 12-19-2022 09:45-0400 Diastolic blood pressure 85 mm[Hg] Robbie Ball Other [facility] Other 12-19-2022 09:45-0400 Respiratory rate 12 /min Robbie Ball Other [facility] [employer] Other 12-19-2022 09:45-0400 Systolic blood pressure 139 mm[Hg] Robbie Ball Other [facility] [employer] Other Encounters Encounter Date Encounter Type Care Provider Facility Start: 01-12-2024 End: 01-12-2024 ambulatory SYEDA A PETITTI Not Available Start: 01-01-2024 End: 01-01-2024 ambulatory ERIC GALAN Not Available Start: 12-21-2023 End: 12-21-2023 ambulatory SYEDA A PETITTI Not Available Start: 12-08-2023 End: 12-08-2023 ambulatory SYEDA A PETITTI Not Available Start: 11-17-2023 End: 11-17-2023 ambulatory [facility] Work Phone: Start: 11-17-2023 End: 11-17-2023 Patient encounter procedure [facility] Physician [facility] Work Phone: Start: 11-07-2023 Non-patient / Non-visit [facility] Phys[facility] Work Phone: Start: 10-09-2023 End: 10-09-2023 ambulatory SYEDA A PETITTI Not Available Start: 07-05-2023 End: 07-05-2023 ambulatory WILBUR Torres SHRAVAN Not Available Start: 06-29-2023 End: 06-29-2023 ambulatory SYEDA A PETITTI Not Available Start: 06-21-2023 End: 06-21-2023 ambulatory SYEDA A PETITTI Not Available Start: 06-07-2023 End: 06-07-2023 ambulatory SYEDA PETITTI Not Available Start: 05-24-2023 End: 05-24-2023 ambulatory SYEDA A PETITTI Not Available Start: 05-17-2023 End: 05-17-2023 ambulatory SYEDA A PETITTI Not Available Start: 05-12-2023 End: 05-12-2023 ambulatory Robbie Nielsen Other [facility] [employer] Other Start: 05-12-2023 Telephone encounter Robbie MARTIN [facility] Start: 05-09-2023 End: 05-09-2023 ambulatory Robbie Nielsen Other [facility] [employer] Other Start: 05-09-2023 Telephone encounter Robbie Walter 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 Technician Start: 01-27-2023 End: 01-27-2023 ambulatory Robbie Nielsen Other [employer] Other Start: 01-27-2023 Telephone encounter Robbie MARTIN [facility] Start: 12-29-2022 End: 12-29-2022 ambulatory Robbie Nielsen Other [employer] Other Start: 12-29-2022 Telephone encounter Robbie MARTIN [facility] Start: 12-26-2022 End: 12-26-2022 ambulatory Robbie Nielsen Other [employer] Other Start: 12-26-2022 Telephone encounter Robbie MARTIN [facility] Start: 12-19-2022 End: 12-19-2022 ambulatory Robbie Nielsen Other [employer] Other Start: 12-19-2022 Office outpatient vi sit 15 minutes Robbie Nielsen [facility] Start: 06-07-2022 End: [address] ROBBIE NIELSEN Facility: Start: 11-03-2021 End: 11-03-2021 Patient encounter procedure ROBBIE NIELSEN [facility] Start: 11-03-2021 End: 11-04-2021 Pre-admission assessment Rah Newberry [facility] Plan of Treatment Date Care Activity Detail Author Comprehensive metabo lic 2000 panel - Serum or Plasma [facility] enter Microalbumin [Mass/volume] in Urine [facility] Immunizations Immunization Date Immunization Notes Care Provider Fa cility 03-28-2022 influenza virus vaccine, split virus (incl. purified surface antigen) Robbie Nielsen Other [employer] Other 03-28-2022 influenza virus vaccine, unspecified formulation [facility] 11-03-2021 COVID-19, mRNA, LNP- S, PF, 30 mcg/0.3 mL dose ROBBIE NIELSEN [facility] Comment on above: Reason for Medicatio n: Prophylaxis 04-14-2021 influenza virus vaccine, split virus (incl. purified surface antigen) Robbie Nielsen Other [facility] Other 04-14-2021 influenza virus vaccine, unspecified formulation [facility] 04-02-2021 COVID-19, mRNA, LNP- S, PF, 30 mcg/0.3 mL dose; Translations: [Pfizer-BioNTech COVID-19 Vaccine] ROBBIE NIELSEN [facility] Comment on above: Reason for Medicatio n: Prophylaxis 07-22-2020 COVID-19, mRNA, LNP- S, PF, 30 mcg/0.3 mL dose; Translations: [Pfizer-BioNTech COVID-19 Vaccine] ROBBIE NIELSEN [facility] 07-01-2020 COVID-19, mRNA, LNP- S, PF, 30 mcg/0.3 mL dose; Translations: [Pfizer-BioNTech COVID-19 Vaccine] ROBBIE NIELSEN [facility] 03-17-2020 influenza virus vaccine, split virus (incl. purified surface antigen) Robbie Nielsen Other [employer] Other 03-17-2020 influenza virus vaccine, unspecified formulation [facility] 03-30-2018 influenza virus vaccine, split virus (incl. purified surface antigen) Robbie Nielsen Other [employer] Other 03-30-2018 influenza virus vaccine, unspecified formulation [facility] 03-01-2017 influenza virus vaccine, split virus (incl. purified surface antigen) Robbie Nielsen Other [facility] Other 03-01-2017 influenza virus vaccine, unspecified formulation [facility] 04-07-2016 influenza virus vaccine, split virus (incl. purified surface antigen) Robbie Nielsen Other [employer] Other 04-07-2016 influenza virus vaccine, unspecified formulation [facility] 07-06-2015 pneumococcal conjuga te vaccine, 13 valent Robbie Nielsen Other [facility] 04-11-2014 influenza virus vaccine, split virus (incl. purified surface antigen) Robbie Nielsen Other [facility] Other 04-11-2014 influenza virus vaccine, unspecified formulation [facility] 04-04-2013 tetanus and diphther ia toxoids, adsorbed, preservative free, for adult use (5 Lf of tetanus toxoid and 2 Lf of diphtheria toxoid) Robbie Nielsen Other [facility] 09-15-2004 pneumococcal polysaccharide vaccine, 23 valent Robbie Nielsen Other [facility] Payers Date Payer Category Payer Medicare [id number] 1960 Private Health Insurance [id number] 1940 Unknown [id number] 2.16.84 [id number] 1940 Unknown [id number] 2.16.84 [id number] 1939 Unknown [id number] 2.16.84 [id number] 1939 Unknown [id number] 2.16.84 [id number] 1939 Unknown [id number] 2.16.84 0.1.838688.3.579.2.1259 1939 Unknown [id number] 2.16.84 0.1.068752.3.579.2.1259 1939 Unknown [id number] 2.16.84 0.1.215828.3.579.2.1259 1939 Unknown [id number] 2.16.84 0.1.398417.3.579.2.1259 1939 Unknown [id number] 2.16.84 0.1.405503.3.579.2.1259 1939 Unknown [id number] 2.16.840 .1.758258.3.579.2.1259 1939 Unknown [id number] 2.16.840 .[id number] 1939 Unknown [id number] 2.16.840 .[id number] Medicare [id number] Self-pay Self Pay [id number] Unknown [place] 5 [id number] Social History Date Type Detail Facility Tobacco smoking status [facility] Sex Assigned At Male [facility] Start: 1940 Sex Assigned At Male F [facility] Evaluation note 12-26-2022 Note Date & Type Note Facility 12-26-2022 Evaluation note Encounter Date Diagnosis Assessment Notes Dec, Type 2 diabetes mellitus without complications (ICD-10 - E11.9) [facility] Other Evaluation + Plan note Note Date & Type Note Facility Evaluation + Plan note No data available for this section [facility] Evaluation note Note Date & Type Note Facility Evaluation note [facility] Other Evaluation note Note Date & Type Note Facility Evaluation note No Information [facility] [employer] Other Evaluation note Note Date & Type Note Facility Evaluation note Diagnosis Onset Date GERD (gastroesophageal reflux disease) acute Hypercholesterolemia acute Hypertension acute Primary insomnia acute Type 2 diabetes mellitus with hyperglycemia acute Medicare annual wellness visit, subsequent noneactive [facility] Work Phone: History general Narrative - Reported Note Date & Type Note Facility History general Narrative - Reported [facility] Other History general Narrative - Reported Note Date & Type Note Facility History general Narrative - Reported Type Medical History Benign prostatic hyp erplasia with lower urinary tract symptoms Medical History Erectile dysfunction due to arterial insufficiency Medical History Primary insomnia Medical History Lumbar spondylosis Medical History Body mass index (BMI ) of 25.0 to 29.9 Medical History Gastroesophageal ref lux disease with esophagitis without hemorrhage Medical History Essential hypertension Medical History Hyperlipidemia type II Medical History Impaired fasting blood sugar Medical History Bee sting reaction Medical History Abscess of left leg Medical History Type 2 diabetes sharmila itus without complications Surgical History Craniotomy 11/1972 Surgical History Carcinoma Urethra 1963 Surgical History Left Inguinal Hernia Vitrectomy 04/2012 Surgical History Inguinal Hernia Repair 06/2014 Hospitalization History see surgical history [facility] Other Hospital Discharge instructions Note Date & Type Note Facility Hospital Discharge instructions No data available for this section [facility] Summary Purpose Family History No Family History Records Found Relationship Condition Age at Onset Recorded Date/T jeramie Not Specified Hypertension Unknown Malignant neoplasm of breast Unknown Advance Directives No Advanced Directives Records Found Advance Directive Response Recorded Date/ Time Advance Directives No July 4:25pm Chief Complaint and Reason for Visit Chief Complaint Amb Documentation SMAWV Reason for Visit GERD (gastroesophage al reflux disease) Hypercholesterolemia Hypertension Primary insomnia Type 2 diabetes mellitus with hyperglycemia Medicare annual wellness visit, subsequent Additional Source Comments (unrecognized sect ion and content) No Status Records FoundNo Status Records FoundNo Status Records FoundNo Status Records Found INFORMATION SOURCE (unrecogn ized section and content) DATE CREATED AUTHOR 05/29/2021 [facility] DATE CREATED AUTHOR AUTHOR'S ORGANIZ ATION 11/22/2021 [facility] DATE CREATED AUTHOR AUTHOR'S ORGANIZ ATION 06/10/2022 [facility] DATE CREATED AUTHOR AUTHOR'S ORGANIZ ATION 01/15/2024 [facility] EPIC REASON FOR VISIT (unrecogniz ed section and content) Lab Worklab resultsLab Resul tsREFERRAL UPDATErefillrefill Care Teams (unrecognized sec tion and content) Team Status: Active Member Role Status Dates Robbie Nielsen DO Primary Care Provider Active Team Status: Active Member Role Status Dates Robbie Nielsen DO Primary Care Provider Active Start: November 07, 2023 Kika Knowles LPN Attending Provider Active S tart: November 07, 2023 Team Status: Inactive Member Role Status Dates Robbie Nielsen DO Primary Care Provide r, Attending Provider Active Start: November 17, 2023 End: November 17, 2023 Goals (unrecognized section and content) Goals may be documented in a n alternate section FOR RECORDS PERTAINING TO PATIENTS WHO ARE OR HAVE BEEN ENROLLED IN A CHEMICAL DEPENDENCY/SUBSTANCEABUSE PROGRAM, SOME INFORMATION MAY BE OMITTED. This clinical summary was aggregated from multiple sources. Caution should be exercised in using it in the provision of clinical care. This summary normalizes information from multiple sources, and as a consequence, information in this document may materially change the coding, format and clinical context of patient data. In addition, data may be omitted in some cases. CLINICAL DECISIONS SHOULD BE BASED ON THE PRIMARY CLINICAL RECORDS. [facility]. provides no warranty or guarantee of the accuracy or completeness of information in this document.
[2024-05-28 11:16] LABS: Basophils Percent Auto 0.4 % (0.2-2.0); Eosinophils Absolute Auto 0.1 10^3/uL (0.0-0.7); Eosinophils Percent Auto 0.7 % (0.9-7.0); Hematocrit 43.2 % (42.0-54.0); Immature Granulocytes Abs Auto 0.01 10^3/uL (0.00-0.03); Immature Granulocytes Pct Auto 0.1 % (0.0-0.5); Lymphocytes Absolute Auto 1.2 10^3/uL (1.2-3.8); Mean Corpuscular HGB Conc 32.4 g/dL (29.9-35.2); Mean Corpuscular Hemoglobin 30.4 pg (25.9-34.0); Mean Corpuscular Volume 93.9 fL (80.0-94.0); Mean Platelet Volume 10.6 fL (9.5-13.5); Monocytes Absolute Auto 0.7 10^3/uL (0.3-0.8); Monocytes Percent Auto 10.8 % (1.7-12.0); Neutrophils Absolute Auto 4.8 10^3/uL (1.4-6.5); Platelet Count 221 10^3/uL (150-450); Red Cell Distribution Width 13.3 % (11.0-15.0); White Blood Count 6.9 10^3/uL (4.0-11.0)
[2024-05-28 11:40] LABS: Percent Iron Saturation 38.9 %
[2024-05-29 10:08] LABS: Vitamin B12 1111 pg/mL (232-1245)
== END 2024-05-28 10:55 | disposition home or self-care (01) ==
LOC: LAB 10:54
PROVIDERS: PCP Internal Medicine; Visit Provider Internal Medicine
DX: D64.9 Anemia, unspecified (principal)
CPT/HCPCS: 36415; 82607; 82728; 83540; 83550; 85025

== ENCOUNTER 2024-12-09 10:15 | Outpatient (OUT) | payer MEDICARE, OTHER, SELFPAY ==
--- OUTSIDE RECORDS SUMMARY | 2024-12-09 10:41 | XMS_ITS | CCD ---
Author Organization [facility] Care Team Providers Care Poultry Sexer Name Role Phone ROBBIE NIELSEN Primary Care Physician RODNEY, DR IBARRA Admitting Unavailable RODNEY, DR IBARRA Attending Unavailable RODNEY, DR IBARRA Primary Care Unavailable RODNEY, DR IBARRA Consulting Unavailable Robbie Nielsen Unavailable Unavailable Primary Care Provider Unavailmicky FITZGERALD, KARELY Sterling Attending Unavailable WILBUR CHENEY Attending Unavailable PETITTI, KARELY Sterling Attending Unavailable PETDAVID, KARELY Sterling Attending Unavailable PETDAVID, KARELY Sterling Attending Unavailable ERIC GALAN Attending Unavailable PETDAVID, KARELY Sterling Attending Unavailable LIA, KARELY Sterling Attending Unavailable Robbie Nielsen DO Primary Care Provider [phone] Robbie Nielsen DO Attending Provider Medications Current Medications Medication Drug Class(es) Dates Sig (Normalized) Sig (Original) ALPRAZolam 0.25 mg oral tablet (2 sources) Benzodiazepine Start: 06-06-2024 End: 12-03-2024 take 1 tablet by mouth once daily as needed for anxiety Alprazolam 0.25 mg tablet Active 0.25 MG PO Daily as needed for anxiety December 03, 2024 12:24pm Complies with drug therapy amLODIPine 5 mg / benazepril hydrochloride 20 mg oral capsule (13 sources) Dihydropyridine Calcium Channel Emmanuel, Angiotensin Converting Enzyme Inhibitor Start: 07-21-2024 take 1 capsule by mouth once daily Amlodipine-Benaz epril 5-20 mg capsule Active 0 .ROUTE .COMPLEX 90 July 21, 2024 6:37pm TAKE 1 CAPSULE BY MOUTH EVERY DAY Complies with drug therapy Start: 11-17-2023 End: 07-21-2024 take 1 capsule by mouth once daily Amlodipine-Benazepril 5-20 mg capsule Discontinued 1 CAP PO Daily November 17, 2023 12:00am July 21, 2024 6:37pm Start: 02-10-2023 take 1 capsule by mo uth in the morning amLODIPine-benazepril (Lotrel) 5-20 MG capsule Take 1 capsule by mouth in the morning. 02/10/2023 Active take 5-20 mg by mout h once daily amLODIPine Besy-Benazepril HCl 5-20 MG TAKE 1 CAPSULE BY MOUTH EVERY DAY Orally qd for 90 days Active aspirin 325 mg oral tablet (3 sources) Platelet Aggregation Inhibitor, Nonsteroidal Anti-inflammatory Drug aspirin 325 MG tablet 1 (one) time each day at the same time. Active betamethasone 0.5 mg/ml / clotrimazole 10 mg/ml topical cream (9 sources) Azole Antifungal, Corticosteroid Start: 11-17-2023 Clotrimazole-Betame thasone 1-0.05 % cream Active 1 APPLIC TOPICAL Twice daily November 17, 2023 12:00am Complies with drug therapy Clotrimazole-Bet amethasone 1-0.05 % 1 application Externally Twice a day Active fluorouracil 50 mg/ml topical cream (3 sources) Nucleoside Metabolic Inhibitor Start: 10-12-2023 fluorouracil (Efudex) 5 % cream Indications: Actinic keratosis APPLY TO AFFECTED AREA(S) ON THE FACE TWO TIMES A DAY FOR 14 DAYS DIRECTED 40 g 10/12/2023 Active latanoprost 0.05 mg/ml ophthalmic solution (3 sources) Prostaglandin Analog Start: 10-28-2022 take 1 drop(s) into the eye(s) at bedtime latanoprost (Xalatan) 0.005 % ophthalmic solution Administer 1 drop into both eyes at bedtime. 10/28/2022 Active omeprazole 20 mg delayed release oral capsule (13 sources) Proton Pump Inhibitor Start: 07-21-2024 Omeprazole 20 mg capsule,delayed release(DR/EC) Active 0 .ROUTE .COMPLEX July 21, 2024 6:37pm TAKE 1 CAPSULE BY MOUTH ON AN EMPTY STOMACH FOLLOWED IN 30 MINUTES BY BREAKFAST ONCE A DAY Complies with drug therapy Start: 02-10-2023 End: 07-21-2024 take 1 capsule by mouth once daily Omeprazole 20 mg capsule,delayed release(DR/EC) Discontinued 20 MG PO Daily November 17, 2023 12:00am July 21, 2024 6:37pm pravastatin sodium 40 mg oral tablet (15 sources) HMG-CoA Reductase Inhibitor Start: 11-03-2023 End: 03-08-2024 take 1 tablet by mouth once daily in the evening Pravastatin 40 mg tablet Active 0 .ROUTE .COMPLEX 90 March 08, 2024 1:01pm TAKE 1 TABLET BY MOUTH EVERY DAY IN THE EVENING Complies with drug therapy Start: 02-09-2023 End: 11-03-2023 take 1 tablet by mouth once daily Pravastatin 40 mg tablet Discontinued 40 MG PO Daily November 03, 2023 12:00am November 03, 2023 1:05pm sildenafil 100 mg oral tablet (12 sources) Phosphodiesterase 5 Inhibitor Start: 06-07-2022 take 1 tablet by mouth once daily Sildenafil 100 mg tablet Active 100 MG PO Daily November 17, 2023 12:00am Complies with drug therapy Completed/Discontinued Medications Medication Drug Class(es) Dates Sig (Normalized) Sig (Original) acetaminophen 325 mg / oxyCODONE hydrochloride 5 mg oral tablet (9 sources) Opioid Agonist Start: 11-17-2023 End: 12-06-2024 take 1 tablet by mouth every eight hours as needed Oxycodone-Acetamino phen 5-325 mg tablet Discontinued 1 TAB PO Every 8 hours as needed November 17, 2023 12:00am December 06, 2024 2:37pm Start: 12-19-2022 take 1 tablet by sera th every eight hours as needed for pain oxyCODONE-Acetaminophen 5-325 MG 1 table t as needed Orally every 8 hours as needed for pain for 7 days Dec, Active Start: 12-19-2022 temazepam 15 mg oral capsule (18 sources) Benzodiazepine Start: 03-06-2023 End: 12-03-2024 take 1 capsule by mouth once daily at bedtime as needed for sleep Temazepam 15 mg capsule Discontinued 15 MG PO Daily at bedtime as needed for sleep November 07, 2023 12:00am November 07, 2023 2:26pm Start: 10-26-2022 take 1 capsule by mo uth once daily at bedtime as needed Temazepam 15 MG TAKE 1 CAPSULE BY MOUTH EVERY DAY AT BEDTIME NEEDED FOR INSOMNIA for 30 October, Active Problems Active Problems Problem Classification Problem Date Documented Date Episodic/Chronic Anxiety disorders (2 sources) Generalized anxiety disorder; Translations: [Generalized anxiety disorder] 06-06-2024 Chronic Deficiency and other anemia (1 source) Anemia; Translations: [Anemia, unspecified] 11-18-2023 Episodic Diabetes mellitus with complications (4 sources) Hyperglycemia due to type 2 diabetes mellitus; Translations: [Type 2 diabetes mellitus with hyperglycemia] 11-16-2023 Chronic Diabetes mellitus without complication (8 sources) Type 2 diabetes mellitus without complication; Translations: [Type 2 diabetes mellitus without complications] Chronic Diabetes mellitus without complication (11 sources) Impaired fasting glucose; Translations: [Impaired fasting glycemia] Onset: 06-07-2022 Episodic Disorders of lipid metabolism (12 sources) Familial hypercholesterolemia ; Translations: [Pure hypercholesterolemia ] Onset: 06-10-2022 11-16-2023 Chronic Esophageal disorders (6 sources) Gastro-esophageal reflux disease with esophagitis; Translations: [Gastroesophageal reflux disease with esophagitis without hemorrhage] 11-16-2023 Chronic Essential hypertension (13 sources) Essential (primary) hypertension; Translations: [Essential hypertension] Onset: 06-10-2022 Chronic Hyperplasia of prostate (7 sources) Lower urinary tract symptoms due to benign prostatic hypertrophy; Translations: [Benign prostatic hyperplasia with lower urinary tract symptoms] Chronic Melanomas of skin (2 sources) History of malignant melanoma of the skin; Translations: [Personal history of malignant melanoma of skin] 06-24-2024 Episodic Miscellaneous mental health disorders (11 sources) Primary insomnia; Translations: [Primary insomnia] 11-07-2023 Chronic Other aftercare (1 source) Other moth exterminator (current) drug therapy; Translations: [OTH FAMILY PRACTITIONER CURRENT DRUG THERAPY] Onset: 06-10-2022 Episodic Other male genital disorders (7 sources) Impotence of organic origin; 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] Chronic Other nervous system disorders (2 sources) Abnormal gait; Translations: [Unsteadiness on feet] 12-06-2024 Episodic Other non-epithelial cancer of skin (2 sources) History of malignant basal cell neoplasm of skin; Translations: [Personal history of other malignant neoplasm of skin] 06-24-2024 Episodic Other nutritional; endocrine; and metabolic disorders (7 sources) Overweight; Translations: [Overweight] Episodic Other skin disorders (2 sources) Seborrheic keratosis; Translations: [Other seborrheic keratosis] 06-24-2024 Episodic Other skin disorders (2 sources) Inflamed seborrheic keratosis; Translations: [Inflamed seborrheic keratosis] 06-24-2024 Episodic Other skin disorders (2 sources) Actinic keratosis; Translations: [Actinic keratosis] 06-24-2024 Episodic Other skin disorders (2 sources) Lentiginosis; Translations: [Other melanin hyperpigmentation] 06-24-2024 Episodic Other upper respiratory disease (7 sources) [...] Test Name Value Interpretation Reference Range Facility No Panel Informationon 06-24 [facility] CBC AUTO DIFFon 06-07-2022 BASO # 0.0 103/ul Normal 0.0-0.1 [facility] Comment on above: Performed By: #### C BC #### [facility] [address] [place] [address] Dr. Wu Tony Basophils/100 WBC (Bld) 0.6 % Normal 0.2-2.0 [facility] Comment on above: Performed By: #### C BC #### [facility] [address] [place] [address] Dr. Wu Tony EO # 0.0 103/ul Normal 0.0-0.7 [facility] Comment on above: Performed By: #### C BC #### [facility] [address] [place] [address] Dr. Wu Tony Eosinophils/100 WBC (Bld) 0.6 % Critically low 0.9-7.0 [facility] Comment on above: Performed By: #### C BC #### [facility] [address] [place] [address] Dr. Wu Tony Erythrocyte distribution width (RBC) [Ratio] 13.3 % Normal 11.0-15.0 [facility] Comment on above: Performed By: #### C BC #### [facility] [address] [place] [address] Dr. Wu Tony Hematocrit (Bld) [Volume fraction] 44.6 % Normal 42.0-54.0 [facility] Comment on above: Performed By: #### C BC #### [facility] [address] [place] [address] Dr. Wu Tony Hemoglobin (Bld) [Mass/Vol] 14.4 g/dL Normal 14.0-18.0 [facility] Comment on above: Performed By: #### C BC #### [facility] [address] [place] [address] Dr. Wu Tony IG # 0.01 10e3/ul Normal 0.00-0.03 [facility] Comment on above: Performed By: #### C BC #### [facility] [address] [place] [address] Dr. Wu Tony IG % 0.2 % Normal 0.0-0.5 [facility] Comment on above: Performed By: #### C BC #### [facility] [address] [place] [address] Dr. Wu Tony LYMPH # 1.6 103/ul Normal 1.2-3.8 [facility] Comment on above: Performed By: #### C BC #### [facility] [address] [place] [address] Dr. Wu Tony Lymphocytes/100 WBC (Bld) 25.7 % Normal 20.5-60.0 [facility] Comment on above: Performed By: #### C BC #### [facility] [address] [place] [address] Dr. Wu Tony MANUAL DIFF REQ NO Normal [facility] Comment on above: Performed By: #### C BC #### [facility] [address] [place] [address] Dr. Wu Tony MCH (RBC) [Entitic mass] 30.6 pg Normal 25.9-34.0 [facility] Comment on above: Performed By: #### C BC #### [facility] [address] [place] [address] Dr. Wu Tony MCHC (RBC) [Mass/Vol] 32.3 g/dL Normal 29.9-35.2 [facility] Comment on above: Performed By: #### C BC #### [facility] [address] [place] [address] Dr. Wu Tony MCV (RBC) [Entitic vol] 94.9 fL Critically high 80.0-94.0 [facility] Comment on above: Performed By: #### C BC #### [facility] [address] [place] [address] Dr. Wu Tony MONO # 0.5 103/ul Normal 0.3-0.8 [facility] Comment on above: Performed By: #### C BC #### [facility] [address] [place] [address] Dr. Wu Tony Monocytes/100 WBC (Bld) 7.1 % Normal 1.7-12.0 [facility] Comment on above: Performed By: #### C BC #### [facility] [address] [place] [address] Dr. Wu Tony NEUT # 4.2 103/ul Normal 1.4-6.5 [facility] Comment on above: Performed By: #### C BC #### [facility] [address] [place] [address] Dr. uW Tony Neutrophils/100 WBC (Bld) 65.8 % Normal 43.0-75.0 [facility] Comment on above: Performed By: #### C BC #### [facility] [address] [address] [address] Wu Tony Platelet mean volume (Bld) [Entitic vol] 10.2 fL Normal 9.5-13.5 [facility] Comment on above: Performed By: #### C BC #### [facility] [address] [place] [address] Dr. Wu Tony PLT 226 103/ul Normal 150-450 [facility] Comment on above: Performed By: #### C BC #### [facility] [address] [place] [address] Dr. Wu Tony RBC 4.70 106/ul Normal 4.70-6.10 [facility] Comment on above: Performed By: #### C BC #### [facility] [address] [place] [address] Dr. Wu Tony WBC 6.4 103/ul Normal 4.0-11.0 [facility] Comment on above: Performed By: #### C BC #### [facility] [address] [place] [address] Dr. Wu Tony GLYCOHEMOGLOBIN A1Con 2021 ADA RECOMMENDATION SEE BELOW Normal [facility] Comment on above: Result Comment: ADA RECOMMENDED LIMIT 4.0 - 6.0 ADA THERAPEUTIC TARGET < 7.0 ACTION SUGGESTED > 7.0 Performed By: #### A 1C #### [facility] [address] [place] [address] Dr. Wu Tony Glucose [Mass/Vol] 131 mg/dL Normal [facility] Comment on above: Performed By: #### A 1C #### [facility] [address] [place] [address] Dr. Wu Tony HbA1c (Bld) [Mass fraction] 6.2 % Normal 4.5-6.2 [facility] Comment on above: Performed By: #### A 1C #### [facility] [address] [place] [address] Dr. Wu Tony LIPID PROFILEon 06-07-2022 CHOL-HDL RATIO NORM SEE BELOW Normal [facility] Comment on above: Result Comment: 3.3 - 4.4 LOW RISK 4.4 - 7.1 AVERAGE RISK 7.1 - 11.0 MODERATE RISK >11.0 HIGH RISK Performed By: #### L IPID, ALT, BMP #### [facility] [address] [place] [address] Dr. Wu Tony Cholesterol [Mass/Vol] 157 mg/dL Normal <=200 [facility] Comment on above: Performed By: #### L IPID, ALT, BMP #### [facility] [address] [address] [address] Wu Tony Cholesterol in HDL [Mass/Vol] 65 mg/dL Critically high 40-60 [facility] Comment on above: Performed By: #### L IPID, ALT, BMP #### [facility] [address] [place] [address] Dr. Wu Tony Cholesterol in LDL [Mass/Vol] 73.8 mg/dL Normal [facility] Comment on above: Performed By: #### L IPID, ALT, BMP #### [facility] [address] [place] [address] Dr. Wu Tony Cholesterol.total/Cho lesterol in HDL [Mass ratio] 2.4 {ratio} Normal [facility] Comment on above: Performed By: #### L IPID, ALT, BMP #### [facility] [address] [place] [address] Dr. Wu Tony HDL NORMAL > or = 60 mg/dl - LOW CARDIOVASCULAR RISK <40 mg/dl - HIGH CARDIOVASCULAR RISK Normal [facility] Comment on above: Performed By: #### L IPID, ALT, BMP #### [facility] [address] [place] [address] Dr. Wu Tony LDL CALC NORMAL SEE BELOW Normal [facility] Comment on above: Result Comment: <100 mg/dl OPTIMAL 100 - 129 mg/dl NEAR OR ABOVE OPTIMAL 130 - 159 mg/dl BORDERLINE HIGH 160 - 189 mg/dl HIGH >190 mg/dl VERY HIGH Performed By: #### L IPID, ALT, BMP #### [facility] [address] [address] [address] Wu Tony Triglyceride [Mass/Vol] 91 mg/dL Normal <=150 [facility] Comment on above: Performed By: #### L IPID, ALT, BMP #### [facility] [address] [address] [address] Wu Tony VLDL CALC 18.2 mg/dL Normal [facility] Comment on above: Performed By: #### L IPID, ALT, BMP #### [facility] [address] [place] [address] Dr. Wu Tony PROF CHEM 8 (BAS METB)on Anion gap [Moles/Vol] 7.6 mmol/L Normal [facility] Comment on above: Performed By: #### L IPID, ALT, BMP #### [facility] [address] [place] [address] Dr. Wu Tony Calcium [Mass/Vol] 9.2 mg/dL Normal 8.5-10.1 [facility] Comment on above: Performed By: #### L IPID, ALT, BMP #### [facility] [address] [place] [address] Dr. Wu Tony Chloride [Moles/Vol] 105 mmol/L Normal 98-107 [facility] Comment on above: Performed By: #### L IPID, ALT, BMP #### [facility] [address] [place] [address] Dr. Wu Tony CO2 [Moles/Vol] 32.5 mmol/L Critically high 21.0-32.0 [facility] Comment on above: Performed By: #### L IPID, ALT, BMP #### [facility] [address] [place] [address] Dr. Wu Tony Creatinine [Mass/Vol] 0.82 mg/dL Normal 0.70-1.30 [facility] Comment on above: Performed By: #### L IPID, ALT, BMP #### [facility] [address] [place] [address] Dr. Wu Tony EGFR-AF SAMMARINESE >60 Normal >=60 [facility] Comment on above: Performed By: #### L IPID, ALT, BMP #### [facility] [address] [place] [address] Dr. uW Tony EGFR-NON AF SAMMARINESE >60 Normal >=60 [facility] Comment on above: Performed By: #### L IPID, ALT, BMP #### [facility] [address] [address] [address] Wu Tony Glucose [Mass/Vol] 132 mg/dL Critically high 74-106 [facility] Comment on above: Performed By: #### L IPID, ALT, BMP #### [facility] [address] [address] [address] Wu Tony Potassium [Moles/Vol] 4.1 mmol/L Normal 3.5-5.1 [facility] Comment on above: Performed By: #### L IPID, ALT, BMP #### [facility] [address] [place] [address] Dr. Wu Tony Sodium [Moles/Vol] 141 mmol/L Normal 136-145 [facility] Comment on above: Performed By: #### L IPID, ALT, BMP #### [facility] [address] [place] [address] Dr. Wu Tony Urea nitrogen [Mass/Vol] 20.0 mg/dL Critically high 7.0-18.0 [facility] Comment on above: Performed By: #### L IPID, ALT, BMP #### [facility] [address] [place] [address] Dr. Wu Tony Urea nitrogen/Creatinine [Mass ratio] 24.4 mg/mg Normal [facility] Comment on above: Performed By: #### L IPID, ALT, BMP #### [facility] [address] [place] [address] Dr. Wu Tony SGPTon 06-07-2022 ALT [Catalytic activity/Vol] 19 U/L Normal 16-63 [facility] Comment on above: Performed By: #### L IPID, ALT, BMP #### [facility] [address] [place] [address] Dr. Wu Tony Coding Summary.on 11-22-2021 Coding Summary. CD:[id number]+PGhlYWQ+PE1 KYCUaC73ihAKhaZ6GA7 nAZB4ABBLCEJPZTN7EJ Y0fvRP5ONttA5CxooZr TinkcDUgQE97VRw9OYW 1aUtgFFogzI3elFSoE9 s1QuXcNY36aM30MPoqR JJqLyC6CxFxtllxlXQl T9mkThIzlBRaGxa+PHR hYmxlIHdpZHRoPScxMD LnMjJjiOieDV6kSq7wX GVyLWNvbGxhcHNlOiBj n7hcETMbNOwyVS6ueRc pE7TvaER3KSDch0q8Mt 48dHI+DCNrBCH2kIxsJ Zmrt333VpIpz7sgKQC0 nOOdCCtnVPX1H24sy0W 7BOYcJRKiMIR4iOX2uG 9uyDllgnnlB9UjbCEvH aG3EGX8mTKeyN5vdJlg abeipJ4rXfz+J38VPR4 BOIQVMT3LSem6E6EkQm wvdHI+KU62LBWeVW23n JWioIAia1qygBm1CfPc NHMiUZG7eJhjXDhog5B fPBWiY27ilKWxv4K3JM SieQvrqCNnYpKtqAS4w N6yCFbzcqnjx6nllmni Iqkdq8dgms45eM31U77 jIQasSYYkPLC6SVEpPS XvpXrjvh8bbJ9kHt0+I Gtcq4qpv6jatUx3JtNr UQDehoIybReqEUR7h9F cFx78Z4PhlSaue1UlLw u8dz58vOHuv2U1aKY2D BvoESIkdF0qFNpfMmF6 MLBbPzRzfP86kRUfTQq sWo7fgQsxvEygWW9gHK AisfmgYCLyrJ4zZNMsy MGtqEmjRD3mRLMdbsbl v238YdSkUUV5SFWeaNW zP5BwjH6uMlWqZEJuXZ TeG6OktCAzAOgyF052N BwnHhG3ZRMohnYvF8Kd ONIgzUucXiI9t8Z1Iu4 En2GkeukiNEB2JXaxEK P1FaEsMrOrYfU1E5TaF td7GGEdpEyrGG0sV3Qv UKSlmmeimbyciDZ6ILU gOHOmjQ66rSVeJGiwJu 5an9J5r016UBEhODHyg I51Bl3uvCecJNZjxQQW tE1bnxgpm4ufvqcgDeB xVESpZEk6LAu0EDVacQ taIcBfQWB9BtL7ZSC6u BLjmA5gbUkfgaayhG1t Oyc+B66kmH9jSNX8WGE 0jlluVYAabuOiAQ17TQ 50P6EdUqwhvZFafNH+P RKuwhAivRbiFU1yRiXz h5bje8ZeOFuyH7TxHVO gCOvuMpz1UPHgCBP7zJ E5qZ0mUSOaOLyzs7N6r LP8R0SizkTluj3kp3ps URImACmdI45vfAIvo2C 9UVHigCG1DXWygTubQl AldO20Mjx+PGNvbGdyb 5WiGbuks8owe8ogyYc5 IjMwJSIgdmFsaWduPSJ 2l6NbTy42O10sENhrGJ RoPSIxNSUiIHZhbGlnb k6stK5zOk0+PGNvbCB3 sBP7nI8vXDXtWfQ9GLi gS124GsLgbFJxVmjum0 myg1pmcQj3JfAnGVKzm wAssKzqYER8f2EjNf83 E69aKElaFMSvUGDmXXA eCPFucCceof2mhI6mPk 8+XS7fp5uwby15rF12z HI+FZHaKLU9pRazKYoa NRCqsZ8aXWheZjO8WOX sSsIkbA72iSPvMZqjTd 3pkTmcjZhxUQ5mWHQfa cghk897EnXlv1waYNOw sAUwUDxpYZV4D43fp8M 0DJKtPNGtRIR6cHQ7tB 1hbGlnbjogbGVmdDsgd mQtxEwiQDhqYOysT361 IHRvcDsnPlBhdGllbnQ hWqPpYRx8K4VvPol6IB QakUzqZN1pzOYrTImaL g5zgAnpmHmdGQ6rKXTq hvyjk476BqPnc1eyZSA lcIGaYVmdRLJ3B03mj0 Y7VTNcPCElHUC5sYT5q N8tuTfngkhmnSXhoBxg rdDxmXdiDGrjOEijW39 6IHRvcDsnPkJpcnRoIE PfrGB1ZI82WS18uFQhi 8R1kXF2S8EoUTHbqsfx zvrmuAT6IAHlQSPqqA9 6Hj0giQcxKo0qTUIfAL P7NYDvvQEqV5ExrL9hG sHzHIOnWECzM4MhqKHi AFimF474KHkjZjG3QKB llePpI8UsQJIkgDpeBk K0k2P6Ws0GZ1N4BN35R M76hSDvd9W5aYV6N6Tq WZNavgibncitiAX3VLW qWFIfeY99Mk3klVnuAz 8sSFSiUPU2ZCPtgPTuL 9MbqV3lVrWzBUPoOZMv L1SkpMTuLMlzA774HGk wLoH6AZSqdaFxC3LuLJ KsuTlcMpF7r5O4Ow7RS Su2CW22XE51jRBgh5M5 sDH2P6AyVYXmogyymmg ulZR2WFEtDPVkkY61Ps 8zyRaoPf9qTKKdJNU3W VXvjKFrK2WqhR0lMfKr QCUvKBPaC7QvzVWjQOu oC205OCncCcI2NJBfhj ItG0AhEECyzDlzLwA2z 7A5Qa4TONIrKL27GZY8 rED6VH98BB20L0MlAii vdGFibGU+PHRhYmxlIH dpZHRoPScxMDAlJyBzd UphVY4yTu2fSRAuRJEe eWmngVZsMfKtl3xmSCL nUBauNV0leOijF2BmlJ L2SPLmn3v1Qw85L36fG 3JvdXA+OXIoaWI6xEZ7 eW6nKmNpVyO0CBegV61 2VcLryNTwXbydc3kou7 nwrSl9TyU8BKUxrvNop DhoXOP9e5ZmDp39T50r IHdpZHRoPSIxNSUiIHZ ltGhpgm2bdE2lYr9+PG JgsGJ0dNF5oY1wZbBjL lG4VJvaN353ZaKaeLHn Hwsrq0byq4pjuVo7LnZ kWWIuhaYryVzdYHZ3j4 LuVu22K3GwuZela4YmO ft4qr40cYCzc2V6yJL8 E6RuSITixrgqpEBxzTw hYH4pIYUwtgshBWQzbQ 1yMMTsJ9v9VdUfZqC7T VtaY7WsxbR4DVEvaZEr NCzwXPB5X95ct4I4CAW nVWNgVNE4oXR2rN0ggX lnbjogbGVmdDsgdmVyd MyjMOunKTtsZ569HJYo sPjsYEHhaT7kBQUigJX vsKhcGS9wMXBurtthSk 8AAqTVFybvS9PTOIarq GQ+MZOlIBF1vSleBAcj BFKqfZ8vOXMdR0a5KgO cThQ7VVajN6SjCKDlck cdIt96qO6aGaEpWpN3L CasR4GkytR1LCXnsTZy EEmxVZT4J17wf8F0AZX gVPElIRU7gGY8iI1giV lnbjogbGVmdDsgdmVyd NtmUQibLIqnQ797HEXm xYmqHeXuMcJ8LjX3Yzt 9S1QgAav0DWHeeXmeEV 7foGItJKyfFt2myJthh AjoTP1dBCKmlltjYXSv oH1uKVSudLWgfClhCU4 qPIRkwvnyk193KqWgPK B4EVZcgOOuY5QyrT8hB uRaENLtZJNdN2CjdCLm OPxgA079BVggAuX5IWY dslFqA1LfJHOxpYheFd G5k0J1Rk33SjHSNCMsc zwvdGQ+KZOqQHE3aFqo PUmkVTMxjE2sDSPkU1r 6JoUzXuT6NNibV4VoPX NbgqubWk48uT9zFzJxU sZ2WPxgL0JhhnA8ISUq gKGvJJliHDY7Z19sp1L 7UIGrWOEjEIF5sAB6vH 1hbGlnbjogbGVmdDsgd cTgwEqeTLidDNxyJ706 WRNkwQovTp2kyBV5B7Q gPpw6RFUtvNsaAJ0rwK UpPJzuSl7anCxudNemZ V4vKMBgvfpyMGOezN1b HRGqdSIcrCeuKJ4pIIS guifpl331XlSnMED6JN YebCDyW7SpzP5kKqZaC IZnNARhZ3NidSLoVUfd W089GAcsJsH3ZWRrejM eJ6PuYJUozZxpEiP7j3 J1Cj8WaYYtOJWyIP95B L95AO07Y3JcYdrrjCNf bGU+PHRhYmxlIHdpZHR oPScxMDAlJyBzdHlsZT 6kJm5nYJXeVGXueXrzq COjWhWbx5klRHOhEMcb IK3hqBttB1BevWY7FYM il9g2Xu29I48nI8NkkP A+GYQecVV3tNL3uL2tF bXcSbY2PXfyH483WvXc iHOwVanfu7ddc7kghMt 9IjMwJSIgdmFsaWduPS S3r0MjMn97A81hDIzjU HRoPSIyMCUiIHZhbGln rm1xvT9hJv3+PGNvbCB 3bFZ2pS1uAzUeKrY2HF kfU748IrXeeXImHutyR 10kB5JknOD+PHRyPjx0 UASjxGgbDP5hjMMkEVy rWe2iGKP1XyEhOwHqWU tyC7GhYJUkhuxmgxqta ZN6FELkXIGhqF25Eg1p jQbvNx3qMUUsGDC4NUO rbBFdE3AtdV9mFfBrIT ZhIMFjS7PveTCuQTuxD 735QBzuUhK4PMGobuLw O2VjVPCdhSyfDnH7l5S 7Mn4NbYupkDKwJP6dSp TeVGn5W0AyBpd6KTYxg LfdNH0blRGuKSvvLb0m qKazgCuqQY5rGSExazq wd476EwSkr4afANJpnR GyGRwfLSK5L29jo3P2B UUxAAFiQNQ1bBZ3uA8o bGlnbjogbGVmdDsgdmV soYeiIRyuMZgbK990JD GbyGmqSkAKVal9A6OzF wv2UQPydYmpIB3biQSq NKbbLj3waBnmwYsrFC2 jYDWhlakun381DwEvu9 kbLQEypZCmDEcaJQW5V 11be6S3LHMdVGOeWZO5 cKY0hW1pwXtbtbwvgFS mdDsgdmVydGljYWwtYW xeF985FAIhwYvyUu9QN ir3D8GrBcw9GNEpiMpg XG8boYIuSTfxJn9ozUp diLwqRK9cGMVslehvg8 15ByGmb6fbHQOtjOEiA InkNVB6Y85yi9L6DRUq HSBxXTC4rWS3qZ7mxIf nbjogbGVmdDsgdmVydG kjZEkdLCypK631TURsg DsnPlBheWVyOjwvdGQ+ OZ20mr35B2YtEuepGci 8FZCiTQO6mBG7hA2eAM MePWeuv7H5cCT0F1Ifz iKbxv7ng8vuFQZvTSku Y29s (more content not included)... [facility] Consent for COVID Vaccineon 11-03-2021 SARS-CoV-2 (COVID-19) RNA KYLEIGH+probe Ql (Unsp spec) [id number] 618#1.00CD:127 [facility] Consent for COVID Vaccineon 04-24-2021 SARS-CoV-2 (COVID-19) RNA KYLEIGH+probe Ql (Unsp spec) [id number] 122#1.00CD:127 [facility] Consent for Treatmenton 04-12 Consent for Treatment [id number] 888#1.00CD:127 [facility] Coding Summary.on 04-02-2021 Coding Summary. CD:[id number] ZRu2bYu+PGhlYWQ+PE1 IKENbC76dwEByjP8MR2 sDBC7ZPZPTZAOROY7FH I1pqHN7NZjaA9VrxlHy RcnpsIMaUL09ZUr1III 1yWowFGyksL3axWMvI4 e0VdErHE26yX71FLbcP XJoCzO4WtDuvtircQLn M3wrTiXhuRBaHuq+PHR hYmxlIHdpZHRoPScxMD RgZfAtqFckAA6cVd1gR GVyLWNvbGxhcHNlOiBj t9pzLDRyDCidTE8kgVi rZ4WisRM2GETww9l6Bu 48dHI+NHHdISV8sJvbO Rqft166XxJsu3gqCWG3 mEBjFJxcCQR4S17jg1X 0FZUzKZKvVVE4mZN0tM 8jxGmtsgfmD0RliXHcR bP4YXP6mUTtzC8vnCar znbslF8eSik+E76QDN2 CTSGYZG3GXkd6Y3NcPp wvdHI+XZ27MVMiBM41w QHgqOMzo9tbrSk3InTr VXTqWPW9zQjuLMckq6R gHCKeQ60iaHHlu0W9OI VphJgdtWJeKjTntUV5k J7mVRbpqgnxt9jkmcyq Gmwkr9xrmq89dG15I10 yFTnrXFYmOGD1HYZoFW QpeQfbpn3pdL6mHb3+I Fwuz7amv8umjYo0FxIm UFWlqsQouNruRTU4x1A iRr08U3DkqWbpf2YgEb z5vp89dKLkk9V9gKR1M UpqVTIzjZ0kWOlgFhV5 KHJkZoVhuV40fHHzGHx dFo6adEnmoXfwIS5mOO KgmnvlOUFskA8tOXBse CGgmKuzNU0vIPXrnvwc b820RlIrMIY0KIOguSE fB1BdeE3eWjLpLPLmDY UpV9KcgZDpZZtrI060T SfuTrX7JLAiahHcV9Kk PWShnSwtDzQ3g5X5Gx5 Ze9IpufwuSHE1WCykEN FdZkVqEuUiUzS9L0CwN bo5TYKwuDsqDE3nM7Cn ATNdevnckdgmxMX9VVY qUEPwtY27dCFqDNxmEs 0el9Y7m341VIFgZZYbe D89Ip5mpJnmITWhhJBH sM4ngwpaj4nyirldLgG jVGEbTNn2QHv9ZRJpmS apLjDjDVM6CbI8FLC2l PMazZ3uxTkmqshwjO2g Oyc+I59diT5jZUM9OWQ 4qpjpIHLvayCiRU01WZ 58T8DgNhrbpJMtuER+P LPrwvXwtRwoXL2aRqQt r6avv0NmDYjwG9KhOPG tTImfSfn0PPRoDRD9dE S2lF2xBMYuCTnhr0F3j TT8X0DhlmFeqf4yr0nm DAVfSPclW05ohZOqv5V 3GKCrmOE6GCMslWygVn HtdC48Lpp+PGNvbGdyb 7XuAqxsd0iin9gojRy7 IjMwJSIgdmFsaWduPSJ 8x1QiJm75L49zSFqeEY RoPSIxNSUiIHZhbGlnb s9mlD3jSd8+PGNvbCB3 gOV7bN2dEZZqZeL2XGn hC188UeNyjPLzWdlae8 yof9thzSo7AbJcBTAwa fRkoKcxZDE1e6FyGf36 A18yIRrsZPNkHBHmDLP wTBFcgIvegr6wyB6aHo 8+SV0oz6klgi59gN41m HI+TLKtRPS1wSaxIEah PGDtnQ4mQNziBrO0SQV mTaNdaT82jKUhGNyaIa 1vaUdvyDvoNS6oTDCxz rhxq232JmJns9nkMEEw qEKgUKteSHZ7X31sh2O 1ZNJlTUAnBVI6tQJ2zM 1hbGlnbjogbGVmdDsgd zUdkVqhQWpiMXwiV267 IHRvcDsnPlBhdGllbnQ mNaNhQKo9K1KwBbe9LM LuyVfdEC2wjQTxGYcmC k6exCikdFabNM6mAPDp rdmsp131OpWvz8llXZP rgONiCLhfOMQ7F98qx0 B1XIKjUAEmFBH9qCT6f D7ejOhzqpvuiXWgfBhw qhBfwYvaVMhpVGnlN24 6IHRvcDsnPkJpcnRoIE PypPO9UX98TJ87kRLwp 3C4aGP5K9IaEXAtizii hkjbySM6LDOoJTCsoQ7 8Hs1jaGeyUe8xGSTdFX F6WIMypCZuT6ItnT1wX lPlCJDoQYJgO2UwnAZq OYxkM840CTofBtP2IEX ubyDmH3GbGINidYjgCj F6o2Y1Iq8KW4V6RU74L D74eJHmw3A7iQP5Z3An XJBmxyslxkvezZK6URM xCPCoiR65Vj3xzBjeXn 8vZEPrZRD2JEGscPHjD 1ZvuD8dKoAqNKWaWUMy M2VrgRSoPQohK633ZJb oCfZ4JDZniaRxK5LzJI QonZluFmC9k2G9Uk6JF Oy8ZA29HQ94cETuk6U8 hHB6C9TqNEErsixjwtz qpIN0TFBoLOShtT10Dw 0oiWpjJz8uIWHeYWC9F SBwtSPtC1KacM3oKvNj EHPqBBOmG7DqaITeHAc aE103GAasRnF9DNLjtt FmC3RcVKKprHxhEdE8h 7P7Xv9FMEAtGZ58LIV7 fCX0YR75UI26I4NuIok vdGFibGU+PHRhYmxlIH dpZHRoPScxMDAlJyBzd JhkHP3tKt5mSZPsVGLy iIshfFDnDjKvz3nxXRB bWVnsHT9gmCxuO5UcdL J5GUEhy7h4Fa67E38vE 3JvdXA+HMOpvHN1sKD9 gC5sPmDkNsE5QZqnB40 5SzAghSPeJxqnj7bai2 ymeZy4CjY6WRMnhoNoe NltFMW3w3WoFj72L67x IHdpZHRoPSIxNSUiIHZ soHasab1pvT3xSg0+PG RtyZM5hOS5fX9kHkMtI pW1UEyuQ327BbMbfLLu Lgmtd7ikl5xjeTq2FsU bIKDcgzVzpDcpMQP4r3 VvMm14P5HicZnue2UbF fi0rf85vTNpt2Z5dPK3 R0MvXOFsimqejVZcxWi gEL0iCMMubqejKWAfaN 9hHRDrL8x7GrCqNaS7I NysP1IjfpT1SWCwtODq DCgkICD2A72ep5D7XWM aRWWcIQO3rYE6rD4wuS lnbjogbGVmdDsgdmVyd SttFVjtKNmxX664LVCv yHcpPWFzcU5kVFOmqKR otHgtGG6eYCOoojktWm 4BEeOVLlqiK2VBLSgvy GQ+JPWdPBU7iEghPTtb DZKuyN8hISNiC3b8CbL xRuP3QCyzH7JtPTRqug feSn10kM6vWhIcZhA9V ZqyB0BmovS4TOVxzTQw NGonRCL4R85hn6A3LYH vDPNsHOM9bGZ4vU9sgE lnbjogbGVmdDsgdmVyd JxdMAueEMdyG999NFGw fUdlCuQfVnP0YaE0Sxs 1H1KnMxb1FOJzgRqzQJ 4ieYRrEKipWn5neRini TigUF2qLZCernllZUAe aJ2pCQOynHJvfRmkCS9 aLBJgijnor216RgStXP U0JVKdeIEwQ5NhlM0bB lBgHIIpSKHbH6SmcFCg HXxxX072KIxwWqU6FPB tybReU7FhJCLolIrdJl S7z3Q7Id57JHVMOERht zwvdGQ+JLCfEQD5fRhi BBwpMBDimE4fNBZkQ9i 2MlJlYlM2TNtiW6JdON LalvnuOv74nZ9yMbNtM zM9YBjdF7IcpbM8SVUv vKGtUWzmQBS9B75eb5J 4WCWpCTQqQAW2eZB7kY 1hbGlnbjogbGVmdDsgd yUlxVapUKasKPmhL608 ZYUcjShuLw4bqOI8E2H nZki2DWYkwJbdKW4agL JgBJxdJt6gkFqsjBzoN V6zOMVqtpzgNTUajJ7y GYPrfASgbDfpRA7sKBG kzzpes889JpTqVAS6QX IfzXFfI9YxhA6oFmWjD LEsWVDjO4NxyRCfDScn B447FOfjZhV4JAWsxxS jM4FfJBKfbEbbAzZ5f8 C5Nk2DCIV2ztCxvpo6G 3RkPjwvdHI+VM22CXQe LX74lCNygKTmr4zrkWq 5ZqEwSORjOMM7oUbfAK tjj7IkYLRzB41mqYPhu 9J1ERBgcAudoGYwKlYr bZF8qD1lWXnyotxzd5w ugtdwVljyu6wvzp42gS 77Z07mTJdtJHFoVKTvH JXlZWFphQifds1gaV3e Ii8+DASwfJY2lAK0jD1 wMbSyXuP7PHjyG527Xo XqgMSfVpucm3xub5sqm Qz0HfSrMOAtnoThcBvf WZV3t2KfXb89I33uTHb pZHRoPSIyMCUiIHZhbG prvj2caZ4bFn4+PC9jb 0snxh46rQ62qBK+PHRk BQI9wRcmWJhnRGDbyD3 jBXszLpN7JXOvDgZcjZ 38tADfLGwsTx6jlHsvz BshEV5mQULmprnlt888 AnRvu0lrMTFlqZYjKVx sEOY8G11dp2T2IVJvHT KpQAL6nAG2tJ5dqLzuj jogbGVmdDsgdmVydGlj RXawFMoyA422ZSYbtUm fFbCysUHqJ0mksnMGBB 1lOjwvdGQ+ZSLvPNH3z LpgQYokCXRweT2jPNEk W1x8XlKlAkP2TLwnV8X goxF2DYKrnTXgCLKubG PUtN3gpyuul1omeyhpB nYhMYZqFSq2LSr3PFSq gZuwQoZjMIE2EhT3XTP 8gCVbzQ2zpIkgmrfniR 9wOyc+RklOOjwvdGQ+P BAcUNU1vWjiIOqtPSDa jK4vMCUcZ4g8MoRmZsJ 0SEzuG0JewlE4RNAtqF OxJQTzdRTJxC4sqjyki 5xiyhqeAlJfCEImNGa2 DUg0FCGkgDwlMnKcPWC 5SqF9RDL7uGPjxJ5muR wpqlyvwR6jRvz+TVJOO jwvdGQ+IYIwMLD0qZwb NNsqOVPwiY7kKGByC9e 6NaHuIhO5VZwgT1Shhe M0PNVedMWwEIFiyXETr A9bhlhqm2fcjcvvFaEv YQLzOEp6NUs4PFZhtKx mFmVnESU5DmC9MSL3tN NlsU5xcKwcqbvvaF9vX yc+QYA2JBA8BR73PZ37 Q7MoDnooyMVgyFF+PHR hYmxlIHdpZHRoPScxMD FpSzVuxEmvZL4tPw7cU GVyLWNvbGxhcHNlOiBj b2xs (more content not included)... [facility] Superficial Wound Cultureon 07-30-2020 Superficial Wound Culture ORGANISM: Staphylococcus aureus (O:STAAUR) Quantity of Growth Heavy Growth Aerobic KESHAWN Charge (PC45) ------ SUSCEPTIBILITY ----- ORGANISM: O:STAAUR ANTIBIOTIC INTERPRETATION KESHAWN Amoxacillin/K Clavulanate S <4/2 Ampicillin/Sulbacta m S <8/4 Azithromycin R >4 Cefazolin S <8 Ceftaroline S <0.5 Ceftriaxone S <8 Ciprofloxacin S <1 Clindamycin R <0.5 Daptomycin S <1 Erythromycin R >4 Levofloxacin S <1 Linezolid S <2 Meropenem S <4 Oxacillin S <0.25 Penicillin S <0.03 Piperacillin/Tazoba ctam S <4 Rifampin S <1 Tetracycline S <4 Trimethoprim/Sulfam ethoxazole S <0.5/9.5 Vancomycin S 1 S = [...] RESISTANT TO ALL B-LACTAM DRUGS. PERFORMED BY: [place] [address] PATHOLOGIST IRON WORKER APPRENTICE SALVADOR TOLBERT M.D. [facility] Comment on above: Performed By: #### C USUP #### [place] [id number] [facility] Vital Signs Date Time Vital Sign Value Performing Clinician Facility 12-06-2024 14:37-0400 Body height 172.72 cm Red Seraphim DO Work Phone: [facility] 12-06-2024 14:37-0400 Body mass index (BMI) [Ratio] 26.6 kg/m2 Robbie WeYAP DO Work Phone: [facility] 12-06-2024 14:37-0400 Body weight 79.37 kg Robbie WeYAP DO Work Phone: [facility] 12-06-2024 14:37-0400 Diastolic blood pressure 80 mm[Hg] Robbie WeYAP DO Work Phone: [facility] 12-06-2024 14:37-0400 Heart rate 76 /min Robbie WeYAP DO Work Phone: [facility] 12-06-2024 14:37-0400 Respiratory rate 12 /min Robbie WeYAP DO Work Phone: [facility] 12-06-2024 14:37-0400 Systolic blood pressure 133 mm[Hg] Robbie Ball DO Work Phone: [facility] 11-17-2023 14:20-0400 Body height 172.72 cm [facility] 11-17-2023 14:20-0400 Body mass index (BMI) [Ratio] 26.9 kg/m2 [facility] 11-17-2023 14:20-0400 Body weight 80.45 kg [facility] 11-17-2023 14:20-0400 Diastolic blood pressure 80 mm[Hg] [facility] 11-17-2023 14:20-0400 Heart rate 73 /min [facility] 11-17-2023 14:20-0400 Respiratory rate 12 /min [facility] 11-17-2023 14:20-0400 Systolic blood pressure 138 mm[Hg] [facility] 12-19-2022 09:45-0400 Body height 172.72 cm Robbie Ball Other [facility] Other 12-19-2022 09:45-0400 Body mass index (BMI) [Ratio] 26.91 kg/m2 Robbie Ball Other [facility] Other 12-19-2022 09:45-0400 Body weight 80.29 kg Robbie Ball Other [facility] Other 12-19-2022 09:45-0400 Diastolic blood pressure 85 mm[Hg] Robbie Ball Other [facility] Other 12-19-2022 09:45-0400 Respiratory rate 12 /min Robbie Ball Other [facility] Other 12-19-2022 09:45-0400 Systolic blood pressure 139 mm[Hg] Robbie Ball Other [facility] Other Encounters Encounter Date Encounter Type Care Provider Facility Start: 12-06-2024 End: 12-06-2024 ambulatory Robbie Nielsen DO Work Phone: [facility] Work Phone: Start: 12-06-2024 End: 12-06-2024 Patient encounter procedure Robbie Nielsen DO [facility] Work Phone: Start: 06-24-2024 End: 06-24-2024 Office outpatient visit 15 minutes Karely Fitzgerald MD Work Phone: [facility] Comment on above: Seborrheic keratosis (Primary Dx); Seborrheic keratosis, inflamed; Actinic keratosis; Lentigines; History of malignant melanoma of skin; History of basal cell carcinoma Start: 06-24-2024 End: 06-24-2024 ambulatory KARELY A PETITTI Not Available Start: 06-24-2024 End: 06-24-2024 Violet Fitzgerald MD Work Phone: [facility] Start: 06-24-2024 End: 06-24-2024 Violet Fitzgerald MD Work Phone: [facility] Start: 01-12-2024 End: 01-12-2024 ambulatory KARELY A PETITTI Not Available Start: 01-01-2024 End: 01-01-2024 ambulatory ERIC A FELTER Not Available Start: 12-21-2023 End: 12-21-2023 ambulatory KARELY A PETITTI Not Available Start: 12-08-2023 End: 12-08-2023 ambulatory KARELY A PETITTI Not Available Start: 11-17-2023 End: 11-17-2023 ambulatory [facility] Work Phone: Start: 11-17-2023 End: 11-17-2023 Patient encounter procedure [facility] Physician [facility] Work Phone: Start: 11-07-2023 Non-patient / Non-visit [facility] Physician [facility] Work Phone: Start: 10-09-2023 End: 10-09-2023 ambulatory KARELY Sterling PETITTI Not Available Start: 07-05-2023 End: 07-05-2023 ambulatory WILBUR CHENEY Not Available Start: 06-29-2023 End: 06-29-2023 ambulatory KARELY Sterling PETITTI Not Available Start: 05-12-2023 End: 05-12-2023 ambulatory Robbie Nielsen Other [employer] Other Start: 05-12-2023 Telephone encounter Robbie Nielsen [facility] Start: 05-09-2023 End: 05-09-2023 ambulatory Robbie Nielsen Other [employer] Other Start: 05-09-2023 Telephone encounter Robbie Nielsen [facility] Start: 02-10-2023 End: 02-10-2023 ambulatory Robbie Nielsen Other [employer] Other Start: 02-10-2023 Telephone encounter Robbie Nielsen [facility] [employer] Start: 01-27-2023 End: 01-27-2023 ambulatory Robbie Nielsen Other [employer] Other Start: 01-27-2023 Telephone encounter Robbie Nielsen [facility] Start: 12-29-2022 End: 12-29-2022 ambulatory Robbie Nielsen Other [employer] Other Start: 12-29-2022 Telephone encounter Robbie Nielsen [facility] Start: 12-26-2022 End: 12-26-2022 ambulatory Robbie Nielsen Other [employer] Other Start: 12-26-2022 Telephone encounter Robbie Nielsen [facility] Start: 12-19-2022 End: 12-19-2022 ambulatory Robbie Nielsen Other [employer] Other Start: 12-19-2022 Office outpatient vi sit 15 minutes Robbie Rodney [facility] Start: 06-07-2022 End: [address] ROBBIE NIELSEN Facility:[facility] Start: 11-03-2021 End: 11-03-2021 Patient encounter procedure ROBBIE NIELSEN [facility] Start: 11-03-2021 End: 11-04-2021 Pre-admission assessment Rah New[facility] Procedures Date Procedure Procedure Detail Performing Clinician Start: 06-24-2024 End: 06-24-2024 CRYOTHERAPY SKIN LESION Karely Fitzgerald MD Work Phone: Plan of Treatment Date Care Activity Detail Author Start: 12-16-2024 End: 12-16-2024 Patient encounter procedure 12/16/2024 1:30 PM EDT Office Visit [facility] [address] [place] [address] Karely Fitzgerald MD [address] [place] [address] [facility] Start: 06-24-2024 End: 06-24-2024 Patient encounter procedure 06/24/2024 3:05 PM EST Office Visit [facility] [address] [place] [id number] Karely Fitzgerald MD [address] [place] [address] Arrived [facility] Comment on above: Arrived Start: 2004 Pneumococcal Vaccine : 65+ Years (1 of 1 - PCV) Pneumococcal Vaccine: 65+ Years (1 of 1 - PCV) [facility] Comprehensive metabo lic 1999 panel - Serum or Plasma [facility] Comprehensive metabo lic 1999 panel - Serum or Plasma [facility] Microalbumin [Mass/volume] in Urine [facility] Immunizations Immunization Date Immunization Notes Care Provider Fa cili 03-28-2022 influenza virus vaccine, split virus (incl. purified surface antigen) Robbie Nielsen Other [facility] Other 03-28-2022 influenza virus vaccine, unspecified formulation [facility] 11-03-2021 COVID-19, mRNA, LNP- S, PF, 30 mcg/0.3 mL dose ROBBIE NIELSEN [facility] Comment on above: Reason for Medicatio n: Prophylaxis 04-14-2021 influenza virus vaccine, split virus (incl. purified surface antigen) Robbie Nielsen Other [facility] Other 04-14-2021 influenza virus vaccine, unspecified formulation [facility] 04-02-2021 COVID-19, mRNA, LNP- S, PF, 30 mcg/0.3 mL dose; Translations: [Pfizer-BioNTech COVID-19 Vaccine] ROBBIE NIELSEN [facility] Comment on above: Reason for Medicatio n: Prophylaxis 07-22-2020 COVID-19, mRNA, LNP- S, PF, 30 mcg/0.3 mL dose; Translations: [Pfizer-BioNTech COVID-19 Vaccine] ROBBIE NIELSEN [facility] 07-01-2020 COVID-19, mRNA, LNP- S, PF, 30 mcg/0.3 mL dose; Translations: [Pfizer-BioNTech COVID-19 Vaccine] ROBBIE NIELSEN [facility] 03-17-2020 influenza virus vaccine, split virus (incl. purified surface antigen) Robbie Nielsen Other [facility] Other 03-17-2020 influenza virus vaccine, unspecified formulation [facility] 03-30-2018 influenza virus vaccine, split virus (incl. purified surface antigen) Robbie Nielsen Other [facility] Other 03-30-2018 influenza virus vaccine, unspecified formulation [facility] 03-01-2017 influenza virus vaccine, split virus (incl. purified surface antigen) Robbie Nielsen Other [facility] Other 03-01-2017 influenza virus vaccine, unspecified formulation [facility] 04-07-2016 influenza virus vaccine, split virus (incl. purified surface antigen) Robbie Nielsen Other [facility] Other 04-07-2016 influenza virus vaccine, unspecified formulation [facility] 07-06-2015 pneumococcal conjuga te vaccine, 13 valent Robbie Nielsen Other [facility] 04-11-2014 influenza virus vaccine, split virus (incl. purified surface antigen) Robbie Nielsen Other [facility] Other 04-11-2014 influenza virus vaccine, unspecified formulation [facility] 04-04-2013 tetanus and diphther ia toxoids, adsorbed, preservative free, for adult use (5 Lf of tetanus toxoid and 2 Lf of diphtheria toxoid) Robbie Nielsen Other [facility] 09-15-2004 pneumococcal polysaccharide vaccine, 23 valent Robbie Nielsen Other [facility] Payers Date Payer Category Payer Private Health Insurance [facility] [id number] 2005 [place] [address] [id number] 1959 Medicare [id number] 1959 Private Health Insurance [id number] 1939 Unknown [id number]. [id number] 1939 Unknown [id number] [id number]. 2.1259 1939 Unknown [id number] [id number]. 2.1259 1939 Unknown [id number] [id number]. 2.1259 1939 Unknown [id number] [id number]. 2.1259 1939 Unknown [id number] [id number]. 2.1259 1939 Unknown [id number] [id number]. 2.1259 1939 Unknown [id number] [id number]. 2.1259 1939 Unknown [id number] [id number]. 2.1259 Medicare [id number] Self-pay Self Pay [id number] Unknown [place] 5 [id number] Social History Date Type Detail Facility [facility] Start: 01-12-2024 End: 06-24-2024 Sex Assigned At Male [facility] Start: 1940 Sex Assigned At Male F [facility] Start: 05-24-2023 End: 12-06-2024 Tobacco smoking status ORIS Never smoked tobacco [facility] Start: 05-24-2023 Tobacco use and exposure Smokeless tobacco non-user [facility] Start: 01-12-2024 End: 06-24-2024 History of Social function [facility] Start: 1940 Sex assigned at Not on file [facility] Sex Male (finding) [facility] Clinical Notes 12-26-2022 to 06-24-2024 Karely Fitzgerald MD - 06/24/2024 3:05 PM EST Note Date & Type Note Facility 06-24-2024 History of Presen t illness Narrative Skin Check Location: Patient requests a full body skin examination Dermatologic history: history of Actinic Keratosis, history of Basal Cell Carcinoma, history of Squamous Cell Carcinoma, history of Melanoma Last visit: Last skin check 10/09/2023, last office visit 01/12/2024 Established patient Melanoma History: Date of Melanoma Dx: 1999 Melanoma Details: in-situ Melanoma Treatment: Wide excision Number of Lymph Nodes Checked: 0 Location: Right upper abdomen Lesions: Location: right forehead/scalp/forearms Duration: months Quality: denies pain, denies itch, denies bleeding Modifying factors: aggravated by combing hair Associated symptoms: rough, scaly Treatments: none All pertinent medical history, medications, and allergies were reviewed. General Exam: alert, oriented to person, place, and time, normal affect, well appearing Unaccompanied Scalp, Examined Right leg Examined Head, Face Examined Left leg Examined Neck Examined Right foot Examined Chest Examined Left foot Examined Back Examined Buttocks Examined Abdomen Examined Digits,nails: Examined Right arm Examined Left arm Examined Lymphatics: Examined Hands Examined no cervical lymphadenopathy, no axillary lymphadenopathy 1. Seborrheic keratosis Stuck on verrucous, cabello-brown papules and plaques. Patient was counseled regarding these benign growths. Removal is normally not necessary, but they may be removed if they are symptomatic or for cosmetic reasons. 2. Seborrheic keratosis, inflamed Right Frontal Scalp [place] and brown stuck on verrucous scaly papule with surrounding erythema The patient was informed that symptomatic seborrheic keratoses are benign growths that become inflamed, itchy, tender, traumatized, caught on clothing, or bleed. Symptomatic lesions can be treated with cryotherapy or curretage. Thicker lesions treated with cryotherapy may require more than one treatment. The patient was instructed to notify the office if abnormal redness or tenderness develops at the treatment site. Cryotherapy today, see procedure note. Diagnosis: Inflamed seborrheic keratosis Indication: Inflamed Consent: Verbal consent was obtained and risks were discussed, including, but not limited to risks of scarring, darker or refrigeration mechanic helper pigmentary changes, recurrence, incomplete removal and infection. Method: Liquid nitrogen was used to treat the lesion(s) with two 5-10 second freeze-thaw cycles Number of lesions treated: 1 Post-procedure instructions: Instructions were given orally and in writing. The office will be contacted if the lesion fails to resolve despite treatment, or if a side effect develops such as abnormal crusting, scabbing, redness or tenderness Cryotherapy, skin lesion - Right Frontal Scalp 3. Actinic keratosis (12) Left Forearm - Posterior, Left Lower Back, Left Parotid Area, Left Temporal Scalp (2), Left Upper Back, Mid Frontal Scalp, Mid Parietal Scalp, Right Buccal Cheek (2), Right Forearm - Posterior, Right Parotid Area Erythematous scaly papules Patient was counseled regarding these sun-induced growths that can develop into squamous cell carcinoma if left untreated. Discussed treatment with cryotherapy. It was emphasized that any treated lesions that fail to resolve should be re-evaluated. Cryotherapy performed today; see procedure note Diagnosis: Actinic keratosis Indication: Precancerous Location: see skin exam Consent: Verbal consent was obtained and risks were discussed, including, but not limited to risks of scarring, darker or refrigeration mechanic helper pigmentary changes, recurrence, incomplete removal and infection. Method: Liquid nitrogen was used to treat the lesion(s) with two 5-10 second freeze-thaw cycles. Number of lesions treated: 12 Post-procedure instructions: Instructions were given orally and in writing. The office will be contacted if the lesion fails to resolve despite treatment, or if a side effect develops such as abnormal crusting, scabbing, redness or tenderness Patient will treat his forearms with Efudex cream BID x 14 days, he does not need a refill today. Notify office if not resolved despite treatment. Cryotherapy, skin lesion - Left Lower Back, Left Parotid Area, Left Temporal Scalp (2), Left Upper Back, Mid Frontal Scalp, Mid Parietal Scalp, Right Buccal Cheek (2), Right Parotid Area Related Medications fluorouracil (Efudex) 5 % cream APPLY TO AFFECTED AREA(S) ON THE FACE TWO TIMES A DAY FOR 14 DAYS DIRECTED 4. Lentigines Scattered cabello macules in sun-exposed areas. The patient was informed that lentigines are benign pigmented lesions that occur on sun-exposed and sun-damaged skin. No treatment is necessary. Recommended regular use of broad spectrum sunscreen SPF 30 or higher 5. History of malignant melanoma of skin Right Abdomen No evidence of recurrence at melanoma scar. The patient was counseled that scars from excisional sites of melanoma should be monitored closely for recurrence. The patient was instructed to contact the office for any new, changing, or symptomatic moles. The patient was also instructed to contact the office for any new lesions that develop within or around the previous melanoma scar. 6. History of basal cell carcinoma (2) Left Upper Arm - Posterior, Right Shoulder - Posterior No evidence of recurrence at BCC scar. The patient was counseled that scars from excisional sites of nonmelanoma skin cancers should be monitored closely for recurrence. The patient was instructed to contact the office for any new, changing, or symptomatic moles. The patient was also instructed to contact the office for any new lesions that develop within or around the previous surgery scar. Next Visit: 6 months skin check documented in this encounter [facility] 12-26-2022 Evaluation note Encounter Date Diagnosis Assessment Notes Dec, Type 2 diabetes mellitus without complications (ICD-10 - E11.9) [employer] Other Evaluation + Plan note No data available for this section [facility] Evaluation noteNort [employer] Other [facility]No [facility] Other Evaluation note* Diagnosis Onset Date Resolution Status GERD (gastroesophageal reflux disease) acute Hypercholesterolemia acute Hypertension acute Primary insomnia acute Type 2 diabetes mellitus with hyperglycemia acute Medicare annual wellness visit, subsequent noneactive [facility] Work Phone: Evaluation note* Diagnosis Seborrheic keratosis- Primary Seborrheic keratosis, inflamed Actinic keratosis Lentigines History of malignant melanoma of skin Personal history of malignant melanoma of skin History of basal cell carcinoma Personal history of other malignant neoplasm of skin documented in this encounter [facility] Diagnosis Onset Date Resolution Status Admit Date MARGARITO (generalized anxiety disorder) a cute December 06, 2024 2:27pm GERD (gastroesophageal reflu x disease) acute December 06, 2024 2:27pm Hypercholesterolemia acute December 06, 2024 2:27pm Hypertension acute December 06, 2 025 2:27pm Primary insomnia acute November, 2024 2:27pm Type 2 diabetes mellitus wit h hyperglycemia acute December 06, 2024 2:27pm Unsteady acute December 06 2:27pm Medicare annual wellness vis it, subsequent noneactive December 06, 2024 2:27pm [facility] Work Phone: History [facility] - [facility] Other [facility] general Narrative - Reported* Type Description Date Medical History Benign prostatic hyp erplasia with lower urinary tract symptoms Medical History Erectile dysfunction due to ángel rial insufficiency Medical History Primary insomnia Medical History Lumbar spondylosis Medical History Body mass index (BMI) of 25.0 to 29.9 Medical History Gastroesophageal ref lux disease with esophagitis without hemorrhage Medical History Essential hypertension Medical History Hyperlipidemia type II Medical History Impaired fasting blood sugar Medical History Bee sting reaction Medical History Abscess of left leg Medical History Type 2 diabetes mellitus without complications Surgical History Craniotomy 11/1972 Surgical History Carcinoma Urethra 1963 Surgical History Left Inguinal Hernia Vitrectomy 04/2012 Surgical History Inguinal Hernia Repair 06/2014 Hospitalization History see surgical history [employer] Other Hospital Discharge instructions No data available for this section [facility] Reason for referral (narrative)No reason for referral [facility] Work Phone: Summary Purpose Family History Relationship Condition Age at Onset Recorded Date/T jeramie Not Specified Hypertension Unknown Malignant neoplasm of breast Unknown Relationship Condition Age at Onset Recorded Date/T jeramie mother Hypertension Unknown Malignant neoplasm of breast Unknown Advance Directives Advance Directive Response Recorded Date/ Time Advance Directives No July 4:25pm Chief Complaint and Reason for Visit Chief Complaint Amb Documentation SMAWV Reason for Visit GERD (gastroesophage al reflux disease) Hypercholesterolemia Hypertension Primary insomnia Type 2 diabetes mellitus with hyperglycemia Medicare annual wellness visit, subsequent Chief Complaint Admit Date Wellness December 06, 2024 2:27 pm Reason for Visit Admit Date MARGARITO (generalized anxiety disorder) December 06, 2024 2:27pm GERD (gastroesophageal reflux disease) J une 2024 2:27pm Hypercholesterolemia December 06, 2024 2:2 7pm Hypertension December 06, 2024 2:27 pm Primary insomnia December 06, 2024 2:27 pm Type 2 diabetes mellitus with hyperglyce param December 06, 2024 2:27pm Unsteady December 06, 2024 2:27 pm Medicare annual wellness visit, subseque nt December 06, 2024 2:27pm Additional Source Comments (unrecognized sect ion and content) No Status Records FoundNo Status Records FoundNo Status Records FoundNo Status Records Found INFORMATION SOURCE (unrecogn ized section and content) DATE CREATED AUTHOR 05/29/2021 [facility] DATE CREATED AUTHOR AUTHOR'S ORGANIZ ATION 11/22/2021 [facility] DATE CREATED AUTHOR AUTHOR'S ORGANIZ ATION 06/10/2022 [facility] DATE CREATED AUTHOR AUTHOR'S ORGANIZ ATION 06/27/2024 [facility] EPIC REASON FOR VISIT (unrecogniz ed section and content) Reason Comments Skin Check Care Teams (unrecognized sec tion and content) Team Status: Active Member Role Status Dates Robbie Nielsen DO Primary Care Provider Active Team Status: Inactive Member Role Status Dates Robbie Nielsen DO Primary Care Provider Active Start: December 06, 2024 End: December 06, 2024 Robbie Nielsen , Attending Provider Active Sta rt: December 06, 2024 End: December 06, 2024 Team Status: Active Member Role Status Dates Robbie Nielsen , Primary Care Provider Active Team Status: Active Member Role Status Dates Robbie Nielsen , Primary Care Provider Active Start: November 07, 2023 Kika Knowles LPN Attending Provider Active S tart: November 07, 2023 Team Status: Inactive Member Role Status Dates Robbie Nielsen DO Primary Care Provide r, Attending Provider Active Start: November 17, 2023 End: November 17, 2023 Team Status: Inactive Member Role Status Dates Robbie Nielsen , Primary Care Provider Active Start: December 06, 2024 End: December 06, 2024 Robbie Nielsen , Attending Provider Active Sta rt: December 06, 2024 End: December 06, 2024 Goals (unrecognized section and content) Goals may [...] BE BASED ON THE PRIMARY CLINICAL RECORDS. [employer] [facility]. provides no warranty or guarantee of the accuracy or completeness of information in this document.
[2024-12-09 10:56] LABS: Basophils Percent Auto 0.6 % (0.2-2.0); Eosinophils Absolute Auto 0.1 10^3/uL (0.0-0.7); Eosinophils Percent Auto 1.3 % (0.9-7.0); Hematocrit 41.8 % (42.0-54.0); Hemoglobin 13.3 g/dL (14.0-18.0); Immature Granulocytes Abs Auto 0.01 10^3/uL (0.00-0.03); Immature Granulocytes Pct Auto 0.2 % (0.0-0.5); Lymphocytes Absolute Auto 1.5 10^3/uL (1.2-3.8); Lymphocytes Percent Auto 28.7 % (20.5-60.0); Mean Corpuscular HGB Conc 31.8 g/dL (29.9-35.2); Mean Corpuscular Volume 94.1 fL (80.0-94.0); Mean Platelet Volume 10.9 fL (9.5-13.5); Monocytes Absolute Auto 0.4 10^3/uL (0.3-0.8); Neutrophils Absolute Auto 3.2 10^3/uL (1.4-6.5); Neutrophils Percent Auto 61.2 % (43.0-75.0); Platelet Count 219 10^3/uL (150-450); Red Blood Count 4.44 10^6/uL (4.70-6.10); Red Cell Distribution Width 13.2 % (11.0-15.0); White Blood Count 5.2 10^3/uL (4.0-11.0)
[2024-12-09 11:14] LABS: Estimated Average Glucose 134 mg/dL; Glycohemoglobin A1C 6.3 % (4.5-6.2)
[2024-12-09 11:29] LABS: Alanine Aminotransferase 24 U/L (16-63); Albumin Globulin Ratio 1.1; Albumin Level 3.8 g/dL (3.4-5.0); Alkaline Phosphatase 67 U/L (46-116); Anion Gap 13.5; Aspartate Amino Transferase 18 U/L (15-37); BUN Creatinine Ratio 21.5; Bilirubin Total 1.4 mg/dL (0.2-1.0); Carbon Dioxide 27.8 mmol/L (21.0-32.0); Chloride 109 mmol/L (98-107); Chol HDL Ratio 2.5; Cholesterol 145 mg/dL (<=200); Estimated GFR (African America >60 (>=60 mL/min/1.73m^2); Estimated GFR (Non-African Ame >60 (>=60 mL/min/1.73m^2); Globulin 3.4 g/dL; Glucose 122 mg/dL (74-106); HDL Cholesterol 58 mg/dL (40-60); LDL Cholesterol Calculated 73.6 mg/dL; Potassium 4.3 mmol/L (3.5-5.1); Sodium 146 mmol/L (136-145); Thyroid Stimulating Hormone 2.325 uIU/mL (0.358-3.740); Total Protein 7.2 g/dL (6.4-8.2); Triglycerides 67 mg/dL (<=150); VLDL CHOLESTEROL 13.4 mg/dL
[2024-12-09 14:53] LABS: Creatinine Urine Random 122.77 mg/dL (20.00-300.00); Microalbumin Urine Random <1.3 mg/dL (<=30.0)
== END 2024-12-09 10:16 | disposition home or self-care (01) ==
PROVIDERS: PCP Internal Medicine; Visit Provider Internal Medicine
DX: E78.00 Pure hypercholesterolemia, unspecified (principal); R53.83 Other fatigue; E11.65 Type 2 diabetes mellitus with hyperglycemia; I10 Essential (primary) hypertension
CPT/HCPCS: 36415; 80053; 80061; 82043; 82570; 83036; 84443; 85025